=== PATIENT | male | born 1940 | race Caucasian/White ===

== ENCOUNTER → 2018-02-01 | Outpatient (REF) | payer MEDICARE ==
[2018-02-02 14:01] LABS: TOTAL PROTEIN,RANDOM URINE 242.6 MG/DL (0.0-12.0); URINE TOTAL PROTEIN 242.6 MG/DL (0-12)
[2018-02-02 14:06] LABS: COMPLEMENT C4 25 MG/DL (10-40); TOTAL PROTEIN 7.9 GM/DL (6.4-8.2)
[2018-02-02 14:06] LABS: COMPLEMENT C3 142 MG/DL (90-180)
[2018-02-04 00:11] LABS: FREE KAPPA LIGHT CHAINS SERUM 75.8 mg/L (3.3-19.4); FREE LAMBDA LIGHT CHAINS SERUM 44.4 mg/L (5.7-26.3); KAPPA/LAMBDA RATIO SERUM 1.71 (0.26-1.65)
[2018-02-07 14:06] LABS: ALBUMIN 3.98 GM/DL (3.29-5.55); ALBUMIN % 50.4 % (55.8-66.1); ALPHA-1-GLOBULIN % 4.5 % (2.9-4.9); ALPHA-1-GLOBULINS 0.36 GM/DL (0.17-0.41); ALPHA-2-GLOBULINS 0.95 GM/DL (0.42-0.99); BETA-1-GLOBULINS 0.51 GM/DL (0.28-0.60); BETA-1-GLOBULINS % 6.5 % (4.7-7.2); BETA-2-GLOBULINS 0.58 GM/DL (0.19-0.55); BETA-2-GLOBULINS % 7.3 % (3.2-6.5)
[2018-02-07 14:07] LABS: GAMMA GLOBULIN % 19.3 % (11.1-18.8); GAMMA GLOBULINS 1.52 GM/DL (0.65-1.58)
[2018-02-09 14:13] LABS: UPEP INTERPRETATION NO M-SPIKE NOTED; URINE VOLUME RANDOM ML
== END ==
LOC: M LAB REF 13:17
DX: I12.9 Hypertensive chronic kidney disease with stage 1 through stage 4 chronic kidney disease, or unspecified chronic kidney disease (principal); R80.9 Proteinuria, unspecified; N18.9 Chronic kidney disease, unspecified
CPT/HCPCS: 84165

== ENCOUNTER → 2020-03-11 | Outpatient (CLI) | payer SELFPAY | LOC: M LABSMTC 10:17 | PROVIDERS: ATTEND Pediatrics | DX: Z20.828 Contact with and (suspected) exposure to other viral communicable diseases (principal) ==

== ENCOUNTER 2020-05-22 08:00 | Emergency (ER) | payer MEDICARE ==
[~2020-05-22] VITALS: Ht 167.6 cm; Wt 108.7 kg
[2020-05-22] MEDS ORDERED: HYDR10TAB (08:19)
[2020-05-22] MEDS ORDERED: SIMV20TA22 (08:19)
[2020-05-22] MEDS ORDERED: LISI-898 (08:19)
[2020-05-22] MEDS ORDERED: ASPI81CH33 PO (08:19)
[2020-05-22] MEDS ORDERED: POTA20TA6 (08:19)
[2020-05-22] MEDS ORDERED: ATEN50TA2 (08:19)
[2020-05-22] MEDS ORDERED: FURO20TA2 (08:19)
[2020-05-22] MEDS ORDERED: AMIO200T37 (08:19)
[2020-05-22] MEDS ORDERED: XARE15TA (08:19)
--- NOTE | 2020-05-22 08:53 | REP ---
INDICATION: DYSPNEA/COUGH. COMPARISON: None. TECHNIQUE: SINGLE PORTABLE AP VIEW OF THE CHEST WAS PERFORMED. FINDINGS: There is moderate cardiomegaly. There is infiltrate in the right lung predominantly in the mid and lower lung zones with blunting of the costophrenic angle representing a small amount of pleural fluid or thickening. No infiltrate is seen in the left lung. The mediastinal silhouette is otherwise unremarkable. There is left 2 lead pacemaker. IMPRESSION: Right lung infiltrate with a small amount of right pleural fluid or thickening. Moderate cardiomegaly. <Electronically signed by Jamison Yin > 05/22/20 0810
[2020-05-22] MEDS ORDERED: AMLO1TAB25 (09:22)
[2020-05-22 09:29] LABS: RSV AMPLIFICATION NEGATIVE (NEGATIVE)
[2020-05-22 09:38] LABS: BASO % 0.2 % (0.0-1.0); HEMATOCRIT 26.8 % (42.0-52.0); HEMOGLOBIN 7.8 g/dl (13.5-17.5); LYMPH # 0.6 10^3/uL (1.5-5.0); MEAN CORPUSCULAR HEMOGLOBIN 25.1 pg (27.0-33.0); MEAN CORPUSCULAR HGB CONC 29.1 g/dl (32.0-36.5); MEAN CORPUSCULAR VOLUME 86.2 fl (80.0-96.0); MONO # 0.8 10^3/uL (0.0-0.8); MONO % 6.5 % (2.0-8.0); NEUTROPHILS % 87.6 % (36.0-66.0); PLATELET COUNT, AUTOMATED 355 10^3/uL (150-450); RED BLOOD COUNT 3.11 10^6/uL (4.30-6.10); WHITE BLOOD COUNT 12.6 10^3/uL (4.0-10.0)
[2020-05-22 09:48] LABS: INR 3.2; PROTHROMBIN TIME 33.5 SECONDS (12.5-14.3)
[2020-05-22] MEDS ORDERED: cefTRIAXone SOD 2 GM in D5W MINI-BAG PLUS 50 ML IV ONE (10:10)
[2020-05-22 10:21] LABS: ALBUMIN 3.4 GM/DL (3.2-5.2); BILIRUBIN,DIRECT 0.4 MG/DL (0.0-0.2); BILIRUBIN,TOTAL 1.1 MG/DL (0.2-1.0); CALCIUM LEVEL 8.9 MG/DL (8.8-10.2); CK-MB VALUE MASS 5.2 NG/ML (<3.6); CREATININE FOR GFR 2.99 MG/DL (0.70-1.30); GLOMERULAR FILTRATION RATE 21.7 (>42); MB/CK RELATIVE INDEX 4.77 (< OR =4); POTASSIUM SERUM 5.3 MEQ/L (3.5-5.1); THYROID STIMULATING HORMONE 1.59 uIU/ML (0.358-3.740); TROPONIN I 2.84 NG/ML (< 0.10)
[2020-05-22] MEDS ORDERED: ASPIRIN 325 MG TAB PO ONE (10:40)
--- NOTE | 2020-05-22 11:19 | REP ---
INDICATION: infiltrate. COMPARISON: Chest radiograph 05/22/2020. TECHNIQUE: CT chest performed without the use of intravenous contrast. Sagittal and coronal reconstruction images are performed. FINDINGS: Lungs: Scattered diffuse bilateral infiltrates are present. Mediastinum: No gross adenopathy. Ambika: No gross adenopathy. Axilla: No gross adenopathy. Pleura: There is a small left pleural effusion. There is a moderate right pleural effusion. Heart: There is moderate cardiomegaly. Thoracic aorta: No aneurysm. Upper abdominal structures: Grossly unremarkable. Visualized osseous structures: There are degenerative changes of the spine compression deformity.. A left 2 lead pacemaker is noted. IMPRESSION: Scattered diffuse bilateral infiltrates. Small left effusion. Moderate right effusion. Moderate cardiomegaly. <Electronically signed by Jamison Yin > 05/22/20 [id number]
[2020-05-22 12:43] VITALS: BP 136/60
[2020-05-22 12:58] VITALS: BP 133/61
[2020-05-22 13:32] LABS: CK-MB VALUE MASS 7.1 NG/ML (<3.6); MB/CK RELATIVE INDEX 5.59 (< OR =4); TROPONIN I 3.07 NG/ML (< 0.10)
[2020-05-22 15:56] VITALS: BP 138/68
--- NOTE | 2020-05-23 01:45 | ECGEPIP ---
[facility] - ED Test Date: 2020-05-22 Pat Name: ELE IZAGUIRRE Department: Room: - Gender: Male [employer] Equipment Controller: Dedra WALDRON : 1940 Requested By: VARUN Mendez Order Number: [id number] Reading MD: Ramses Olson Measurements Intervals [place] Rate: 81 P: [place]: QRS: 67 QRSD: 182 T: 207 QT: 466 QTc: 541 Interpretive Statements AV sequential or dual chamber electronic pacemaker NO PRIORS FOR COMPARISON Electronically Signed on 05-23-2020 1:44:48 EDT by Ramses Olson
== END 2020-05-22 16:05 | disposition short-term general hospital (02) ==
LOC: M ED 08:00
DX: I21.4 Non-ST elevation (NSTEMI) myocardial infarction (principal); J18.9 Pneumonia, unspecified organism; D64.9 Anemia, unspecified; I11.9 Hypertensive heart disease without heart failure; F17.200 Nicotine dependence, unspecified, uncomplicated; Z95.0 Presence of cardiac pacemaker; Z79.82 Long term (current) use of aspirin; Z79.899 Other long term (current) drug therapy
CPT/HCPCS: 36415; 71045; 71250; 80048; 80076; 82550; 82553; 83880; 84436; 84443; 84484; 85025; 85610; 86850; 86900; 86901; 86920; 87040; 87631; 93005; 93041; 94760; 96365; 99285; J0696; P9016

== ENCOUNTER → 2020-11-11 | Outpatient (REF) | payer MEDICARE ==
[~2020-11-11] MED LIST: AMIO200T37; AMLO1TAB25; ASPI81CH33 PO; ATEN50TA2; FURO20TA2; HYDR10TAB; LISI5TAB11; POTA-151; SIMV20TA22; XARE15TA
== END ==
LOC: M LAB REF 16:51
PROVIDERS: ATTEND Internal Medicine Nephrology
DX: N18.4 Chronic kidney disease, stage 4 (severe) (principal)

== ENCOUNTER → 2022-04-26 | Outpatient (REF) | payer MEDICARE ==
[2022-04-26 18:06] LABS: PERCENT SATURATION 9.1 % (19.7-50.0)
[2022-04-26 18:09] LABS: FERRITIN 62.2 NG/ML (10.5-307.3)
== END ==
LOC: M LAB REF 17:43
PROVIDERS: ATTEND Internal Medicine Nephrology
DX: D50.9 Iron deficiency anemia, unspecified (principal)

== ENCOUNTER 2022-04-30 10:23 | Outpatient (CLI) | payer MEDICARE ==
[~2022-04-30] VITALS: Ht 167.6 cm; Wt 86.4 kg
[~2022-04-30 10:23] MED LIST changes: +ALBUTEROL SULFATE 2.5MG/0.5ML INH NEB SOLN INH PRN; +EPINEPHrine INJ 1 MG/ML 1ML AMP IM PRN; +diphenhydrAMINE 50MG/ML VIAL IV PRN; +methylPREDNISolone 125MG 2ML VIAL IV PRN
[2022-04-30 10:45] VITALS: BP 103/61
[2022-04-30] MEDS ORDERED: IRON65TA2 PO (11:00)
[2022-04-30] MEDS ORDERED: NS 1,000 ML IV SCH (11:30)
[2022-04-30] MEDS ORDERED: FERRIC CARBOXYMALTOSE INJ 750 MG in NS 250 ML (>50kg) IV ONE ×3 (11:30)
[2022-04-30 12:35] VITALS: BP 128/62
== END 2022-04-30 12:40 | disposition home or self-care (01) ==
LOC: M INFU 10:23
PROVIDERS: ATTEND Internal Medicine Nephrology
DX: E61.1 Iron deficiency (principal)
CPT/HCPCS: 96365; J1439

== ENCOUNTER 2022-05-07 11:00 | Outpatient (CLI) | payer MEDICARE ==
[~2022-05-07] VITALS: Ht 167.6 cm; Wt 86.4 kg
[2022-05-07 11:00] VITALS: BP 106/56
[~2022-05-07 11:00] MED LIST changes: +IRON65TA2 PO
[2022-05-07] MEDS ORDERED: FERRIC CARBOXYMALTOSE INJ 750 MG in NS 250 ML (>50kg) IV ONE ×3 (11:30)
[2022-05-07] MEDS ORDERED: NS 1,000 ML IV SCH (11:30)
[2022-05-07 12:30] VITALS: BP 107/59
== END 2022-05-07 12:30 | disposition home or self-care (01) ==
LOC: M INFU 11:00
PROVIDERS: ATTEND Internal Medicine Nephrology
DX: E61.1 Iron deficiency (principal)
CPT/HCPCS: 96365; J1439

== ENCOUNTER 2022-06-22 08:04 | Observation (INO) | payer MEDICARE ==
[~2022-06-22] VITALS: Ht 167.6 cm; Wt 83.8 kg
[~2022-06-22 08:04] MED LIST changes: -ALBUTEROL SULFATE 2.5MG/0.5ML INH NEB SOLN INH PRN; -AMLO1TAB25; +AMLO1TAB25 PO; -ATEN50TA2; +ATEN50TA2 PO; -EPINEPHrine INJ 1 MG/ML 1ML AMP IM PRN; -HYDR10TAB; +HYDR10TAB PO; -POTA-151; +POTA-151 PO; -SIMV20TA22; +SIMV20TA22 PO; -diphenhydrAMINE 50MG/ML VIAL IV PRN; -methylPREDNISolone 125MG 2ML VIAL IV PRN
[2022-06-22] MEDS ORDERED: ROCA0.25 PO (08:17)
[2022-06-22] MEDS ORDERED: PANT40TA29 PO (08:17)
[2022-06-22] MEDS ORDERED: ECOT81TA5 PO (08:17)
[2022-06-22] MEDS ORDERED: VALS1TAB66 PO (08:17)
[2022-06-22] MEDS ORDERED: NS 1,000 ML IV ONE (08:25)
[2022-06-22 08:54] LABS: VENOUS PARTIAL PRESSURE CO2 43.1 mmHg (38.0-50.0); VENOUS PARTIAL PRESSURE O2 37.6 mmHg (30.0-50.0); VENOUS PH 7.238 UNITS (7.330-7.430); VENOUS STANDARD HCO3 16.5 MEQ/L; VENOUS TOTAL CO2 19.3 MEQ/L (24.0-28.0)
[2022-06-22 08:59] LABS: BASO # 0.1 10^3/uL (0.0-0.2); BASO % 0.5 % (0.0-1.0); EOS # 0.1 10^3/uL (0.0-0.5); EOS % 0.7 % (0.0-3.0); HEMATOCRIT 32.1 % (42.0-52.0); HEMOGLOBIN 9.8 g/dl (13.5-17.5); LYMPH # 1.1 10^3/uL (1.5-5.0); LYMPH % 7.2 % (24.0-44.0); MEAN CORPUSCULAR HEMOGLOBIN 29.1 pg (27.0-33.0); MEAN CORPUSCULAR HGB CONC 30.5 g/dl (32.0-36.5); MEAN CORPUSCULAR VOLUME 95.3 fl (80.0-96.0); MONO # 1.4 10^3/uL (0.0-0.8); MONO % 8.8 % (2.0-8.0); NEUTROPHILS % 82.2 % (36.0-66.0); PLATELET COUNT, AUTOMATED 418 10^3/uL (150-450); RED BLOOD COUNT 3.37 10^6/uL (4.30-6.10); WHITE BLOOD COUNT 15.8 10^3/uL (4.0-10.0)
[2022-06-22 09:21] LABS: OSMOLALITY SERUM 298 MOSM/KG (280-301)
[2022-06-22 09:23] LABS: ALBUMIN 2.4 G/DL (3.2-5.2); ALKALINE PHOSPHATASE 86 U/L (46-116); ALT/SGPT < 9 U/L (7.0-40); AST/SGOT 12 U/L (<34); BILIRUBIN,DIRECT 0.3 MG/DL (<0.4); BILIRUBIN,TOTAL 0.4 MG/DL (0.3-1.2); BLOOD UREA NITROGEN 35 MG/DL (9-23); CALCIUM LEVEL 9.2 MG/DL (8.3-10.6); CARBON DIOXIDE LEVEL 22 MMOL/L (20-31); CHLORIDE LEVEL 103 MMOL/L (98-107); GLOMERULAR FILTRATION RATE 32.4 (>35); GLUCOSE, FASTING 147 MG/DL (74-106); POTASSIUM SERUM 4.1 MMOL/L (3.5-5.1); SODIUM LEVEL 137 MMOL/L (136-145); TOTAL PROTEIN 6.5 G/DL (5.7-8.2)
[2022-06-22] MEDS ORDERED: cefTRIAXone SOD 2 GM in D5W MINI-BAG PLUS 50 ML IV ONE (09:25)
[2022-06-22] MEDS ORDERED: NS 2,590 ML in IV 1 EA IV ONE (09:25)
[2022-06-22 09:44] LABS: RSV AMPLIFICATION NEGATIVE (NEGATIVE)
[2022-06-22] MEDS ORDERED: ACETAMINOPHEN TAB 650MG DOSE (2X325MG) PO PRN (11:00)
[2022-06-22] MEDS ORDERED: ACET-683 PO (11:27)
[2022-06-22] MEDS ORDERED: VITA100093 PO (11:27)
[2022-06-22] MEDS ORDERED: FURO40TA2 PO (11:27)
[2022-06-22] MEDS ORDERED: HOME MED LIST COMPLETE! XX SCH (11:30)
[2022-06-22] MEDS ORDERED: HEPARIN SOD (PORCINE) 5000UNITS/ML 1ML VIAL/SYRINGE SC SCH (14:00)
[2022-06-22] MEDS ORDERED: GOLYTELY SOLN 4000 ML BTL PO ONE (15:00)
[2022-06-22 15:35] VITALS: BP 138/60
[2022-06-22 16:00] VITALS: BP_SYST 107; BP_SYST 116; BP_SYST 138; BP_DIAS 58; BP_DIAS 60; BP_DIAS 65
[2022-06-22 19:36] VITALS: BP 116/55
[2022-06-22] MEDS: FERROUS SULFATE 325MG TAB PO SCH (20:58)
[2022-06-22] MEDS: PANTOPRAZOLE 40MG TAB (PROTONIX) PO SCH (20:58)
[2022-06-22 21:00] VITALS: BP_SYST 116; BP_SYST 84; BP_SYST 85; BP_DIAS 50; BP_DIAS 52; BP_DIAS 59
[2022-06-22] MEDS ORDERED: SIMVASTATIN 20 MG TAB PO SCH (21:00)
[2022-06-23 00:28] VITALS: BP 100/68
[2022-06-23 03:53] VITALS: BP 108/60
[2022-06-23 06:19] LABS: HEMATOCRIT 26.1 % (42.0-52.0); HEMOGLOBIN 8.2 g/dl (13.5-17.5); MEAN CORPUSCULAR HEMOGLOBIN 29.4 pg (27.0-33.0); MEAN CORPUSCULAR HGB CONC 31.4 g/dl (32.0-36.5); MEAN CORPUSCULAR VOLUME 93.5 fl (80.0-96.0); RED BLOOD COUNT 2.79 10^6/uL (4.30-6.10); WHITE BLOOD COUNT 10.4 10^3/uL (4.0-10.0)
[2022-06-23 06:23] LABS: PLATELET COUNT, AUTOMATED 267 10^3/uL (150-450)
[2022-06-23 06:29] LABS: ALKALINE PHOSPHATASE 66 U/L (46-116); ALT/SGPT < 9 U/L (7.0-40); AST/SGOT < 8 U/L (<34); BILIRUBIN,TOTAL 0.2 MG/DL (0.3-1.2); BLOOD UREA NITROGEN 26 MG/DL (9-23); CALCIUM LEVEL 8.8 MG/DL (8.3-10.6); CARBON DIOXIDE LEVEL 22 MMOL/L (20-31); CHLORIDE LEVEL 112 MMOL/L (98-107); CREATININE FOR GFR 1.66 MG/DL (0.70-1.30); GLOMERULAR FILTRATION RATE 42.5 (>35); GLUCOSE, FASTING 84 MG/DL (74-106); MAGNESIUM LEVEL 1.6 MG/DL (1.8-2.4); POTASSIUM SERUM 3.2 MMOL/L (3.5-5.1); SODIUM LEVEL 144 MMOL/L (136-145); TOTAL PROTEIN 5.5 G/DL (5.7-8.2)
[2022-06-23] MEDS ORDERED: NS 1,000 ML IV SCH (07:15)
[2022-06-23] MEDS ORDERED: KCL 10MEQ/100ML SWI (KRUN) 10 MEQ in IV 1 EA IV ONE (07:15)
[2022-06-23] MEDS ORDERED: MAG SULF 1GM/100ML (MAG RUN) 1 GM in IV 1 EA IV ONE (07:15)
[2022-06-23 08:17] VITALS: BP 114/58
[2022-06-23] MEDS ORDERED: PANTOPRAZOLE 40MG TAB (PROTONIX) PO SCH (09:00)
[2022-06-23] MEDS ORDERED: ASPIRIN 81MG ENTERIC TABLET PO SCH (09:00)
[2022-06-23 09:11] VITALS: BP_SYST 113; BP_SYST 96; BP_SYST 99; BP_DIAS 52; BP_DIAS 56; BP_DIAS 58
[2022-06-23] MEDS: FERROUS SULFATE 325MG TAB PO SCH (09:19)
[2022-06-23] MEDS: PANTOPRAZOLE 40MG TAB (PROTONIX) PO SCH (09:19)
[2022-06-23 11:54] VITALS: BP 106/56
[2022-06-23 13:27] LABS: HEMATOCRIT 29.4 % (42.0-52.0); HEMOGLOBIN 9.2 g/dl (13.5-17.5)
[2022-06-23] MEDS ORDERED: propofoL 200 MG/20 ML VIAL As Ordered ONE (14:55)
[2022-06-23 16:00] VITALS: BP 113/58
== END 2022-06-23 18:30 | disposition home or self-care (01) ==
LOC: M ED 08:04 → M ED INP 08:05 → ENRESERV 14:36 → M PCU 15:28
PROVIDERS: ADMIT Family Medicine; ATTEND Family Medicine
DX: K63.89 Other specified diseases of intestine (principal); K56.690 Other partial intestinal obstruction; K57.30 Diverticulosis of large intestine without perforation or abscess without bleeding; I95.1 Orthostatic hypotension; R53.1 Weakness; E87.20 Acidosis, unspecified; I48.91 Unspecified atrial fibrillation; D72.829 Elevated white blood cell count, unspecified; I12.9 Hypertensive chronic kidney disease with stage 1 through stage 4 chronic kidney disease, or unspecified chronic kidney disease; N18.9 Chronic kidney disease, unspecified; D64.9 Anemia, unspecified; I25.2 Old myocardial infarction; R63.4 Abnormal weight loss; R63.0 Anorexia; Z79.899 Other long term (current) drug therapy; Z79.82 Long term (current) use of aspirin; Z95.0 Presence of cardiac pacemaker; Z87.891 Personal history of nicotine dependence
CPT/HCPCS: 36415; 45380; 71045; 71250; 74176; 80048; 80053; 80076; 81001; 82140; 82378; 82803; 83605; 83735; 83930; 84145; 84443; 85014; 85018; 85025; 85027; 87040; 87631; 88305; 93005; 93041; 94760; 96361; 96365; 96375; 97116; 97161; 99285; G0378; J0696; J3475

== ENCOUNTER 2022-07-05 14:19 | Inpatient (IN) | payer MEDICARE ==
[~2022-07-05] VITALS: Ht 167.6 cm; Wt 80.0 kg
[~2022-07-05 14:19] MED LIST changes: +ACET-683 PO; +ECOT81TA5 PO; +FURO40TA2 PO; +PANT40TA29 PO; +ROCA0.25 PO; +VALS1TAB66 PO; +VITA100093 PO
[2022-07-05] MEDS ORDERED: METOPROLOL 5 MG/5 ML VIAL IV PRN (15:40)
[2022-07-05] MEDS ORDERED: DIGOXIN INJ 0.5 MG/2 ML AMP IV ONE (16:10)
[2022-07-05 16:20] LABS: ABG BASE EXCESS -7.5 (-2.0-2.0); ABG HCO3 14.6 MMOL/L (22.0-26.0); ABG O2 SATURATION 99.1 % (95.0-99.0); ABG PARTIAL PRESSURE O2 132.3 mmHg (75.0-100.0); ABG STANDARD HCO3 18.3 MMOL/L. (22.0-26.0); ABG TOTAL CO2 15.2 MMOL/L (23.0-31.0); ABG pH (ARTERIAL) 7.485 UNITS (7.350-7.450)
[2022-07-05 16:24] LABS: ABG PARTIAL PRESSURE CO2 19.8 mmHg (35.0-45.0)
[2022-07-05] MEDS ORDERED: NS 500 ML IV ONE (16:30)
[2022-07-05 17:12] LABS: BASO % 0.2 % (0.0-1.0); HEMATOCRIT 27.1 % (42.0-52.0); HEMOGLOBIN 8.2 g/dl (13.5-17.5); LYMPH # 0.6 10^3/uL (1.5-5.0); LYMPH % 2.6 % (24.0-44.0); MEAN CORPUSCULAR HEMOGLOBIN 29.6 pg (27.0-33.0); MEAN CORPUSCULAR HGB CONC 30.3 g/dl (32.0-36.5); MEAN CORPUSCULAR VOLUME 97.8 fl (80.0-96.0); MONO # 0.9 10^3/uL (0.0-0.8); MONO % 4.4 % (2.0-8.0); NEUTROPHILS # 19.6 10^3/uL (1.5-8.5); PLATELET COUNT, AUTOMATED 421 10^3/uL (150-450); RED BLOOD COUNT 2.77 10^6/uL (4.30-6.10); WHITE BLOOD COUNT 21.3 10^3/uL (4.0-10.0)
[2022-07-05] MEDS ORDERED: PIPERACILLIN/TAZOBACTAM SOD 4.5 GM in D5W MINI-BAG PLUS 50 ML IV ONE (17:20)
[2022-07-05 17:30] LABS: CK-MB VALUE MASS < 1.0 NG/ML (<3.6)
[2022-07-05 17:31] LABS: LIPASE 21 U/L (12-53)
[2022-07-05 17:32] LABS: ALBUMIN 2.2 G/DL (3.2-5.2); ALKALINE PHOSPHATASE 95 U/L (46-116); ALT/SGPT < 9 U/L (7.0-40); AST/SGOT < 8 U/L (<34); BILIRUBIN,DIRECT 0.2 MG/DL (<0.4); BILIRUBIN,TOTAL 0.5 MG/DL (0.3-1.2); BLOOD UREA NITROGEN 16 MG/DL (9-23); CALCIUM LEVEL 8.6 MG/DL (8.3-10.6); CARBON DIOXIDE LEVEL 19 MMOL/L (20-31); CHLORIDE LEVEL 104 MMOL/L (98-107); CPK CREATINE PHOSPHOKINASE 22 U/L (46-171); CREATININE FOR GFR 1.83 MG/DL (0.70-1.30); DIGOXIN LEVEL 1.8 NG/ML (0.8-2.0); GLUCOSE, FASTING 159 MG/DL (74-106); INR 1.14; MB/CK RELATIVE INDEX 4.54 (< OR =4); POTASSIUM SERUM 5.5 MMOL/L (3.5-5.1); PROTHROMBIN TIME 14.8 SECONDS (12.5-14.5); SODIUM LEVEL 134 MMOL/L (136-145); TOTAL PROTEIN 6.1 G/DL (5.7-8.2)
[2022-07-05 17:33] LABS: PARTIAL THROMBOPLASTIN TIME 31.5 SECONDS (24.8-34.2)
[2022-07-05 17:34] LABS: FREE T4 1.22 NG/DL (0.89-1.76)
[2022-07-05 17:35] LABS: THYROID STIMULATING HORMONE 2.019 uIU/ML (0.55-4.78)
[2022-07-05 17:58] LABS: RSV AMPLIFICATION NEGATIVE (NEGATIVE)
[2022-07-05 18:24] LABS: CK-MB VALUE MASS < 1.0 NG/ML (<3.6)
[2022-07-05 18:25] LABS: CPK CREATINE PHOSPHOKINASE 16 U/L (46-171); MB/CK RELATIVE INDEX 6.25 (< OR =4)
[2022-07-05] MEDS ORDERED: NS 1,000 ML IV ONE (19:20)
[2022-07-05] MEDS ORDERED: ASPI-161 PO (22:36)
[2022-07-05] MEDS ORDERED: DIGO0.123 PO (22:36)
[2022-07-05] MEDS ORDERED: HOME MED LIST COMPLETE! XX SCH (22:40)
[2022-07-06] VITALS (14 sets, daily range): BP systolic 120–148; BP diastolic 58–83
[2022-07-06] MEDS ORDERED: GLUCAGON INJ 1MG VIAL SC PRN (02:50)
[2022-07-06] MEDS ORDERED: GLUCOSE 4GM CHEW TABLET PO PRN (02:50)
[2022-07-06] MEDS ORDERED: DEXTROSE 50% 50ML SYRINGE IV PRN (02:50)
[2022-07-06 03:41] LABS: BASO % 0.3 % (0.0-1.0); EOS # 0.1 10^3/uL (0.0-0.5); EOS % 0.7 % (0.0-3.0); LYMPH % 8.7 % (24.0-44.0); MEAN CORPUSCULAR HEMOGLOBIN 29.7 pg (27.0-33.0); MEAN CORPUSCULAR HGB CONC 31.3 g/dl (32.0-36.5); MONO # 0.8 10^3/uL (0.0-0.8); MONO % 6.8 % (2.0-8.0); NEUTROPHILS # 9.6 10^3/uL (1.5-8.5); NEUTROPHILS % 83.1 % (36.0-66.0); PLATELET COUNT, AUTOMATED 322 10^3/uL (150-450); RED BLOOD COUNT 2.19 10^6/uL (4.30-6.10); WHITE BLOOD COUNT 11.6 10^3/uL (4.0-10.0)
[2022-07-06 03:44] LABS: HEMATOCRIT 20.8 % (42.0-52.0); HEMOGLOBIN 6.5 g/dl (13.5-17.5)
[2022-07-06 04:15] LABS: CALCIUM LEVEL 7.7 MG/DL (8.3-10.6); CREATININE FOR GFR 1.69 MG/DL (0.70-1.30); GLOMERULAR FILTRATION RATE 41.7 (>35); POTASSIUM SERUM 5.1 MMOL/L (3.5-5.1)
[2022-07-06] MEDS ORDERED: PIPERACILLIN/TAZOBACTAM SOD 2.25 GM in D5W MINI-BAG PLUS 50 ML IV SCH ×2 (05:00→12:00)
[2022-07-06] MEDS ORDERED: amLODIPine 5 MG TAB PO ONE (06:20)
[2022-07-06 06:45] LABS: VENOUS BASE EXCESS -4.8 (-2.0-2.0); VENOUS HCO3 19.3 MMOL/L (23.0-27.0); VENOUS O2 SATURATION 98.8 % (60.0-80.0); VENOUS PARTIAL PRESSURE CO2 31.3 mmHg (38.0-50.0); VENOUS PARTIAL PRESSURE O2 140.8 mmHg (30.0-50.0); VENOUS PH 7.408 UNITS (7.330-7.430); VENOUS STANDARD HCO3 20.5 MMOL/L; VENOUS TOTAL CO2 20.3 MMOL/L (24.0-28.0)
[2022-07-06] MEDS ORDERED: INSULIN LISPRO (NovoLOG) PER UNIT SC SCH (07:30)
[2022-07-06] MEDS ORDERED: PANTOPRAZOLE 40MG TAB (PROTONIX) PO SCH (09:00)
[2022-07-06] MEDS: FERROUS SULFATE 325MG TAB PO SCH ×2 (09:20→20:22)
[2022-07-06] MEDS: DIGOXIN 0.125 MG TAB PO SCH (09:20)
[2022-07-06] MEDS: METOPROLOL TART 50 MG TAB PO SCH ×2 (10:32→20:23)
[2022-07-06] MEDS: PIPERACILLIN/TAZOBACTAM SOD 2.25 GM in D5W MINI-BAG PLUS 50 ML IV SCH ×2 (14:23→20:22)
[2022-07-06 17:43] LABS: HEMATOCRIT 30.1 % (42.0-52.0); HEMOGLOBIN 9.5 g/dl (13.5-17.5)
[2022-07-06] MEDS: PANTOPRAZOLE 40MG VIAL IV SCH (20:22)
[2022-07-06] MEDS: SIMVASTATIN 20 MG TAB PO SCH (20:22)
[2022-07-07] MEDS: PIPERACILLIN/TAZOBACTAM SOD 2.25 GM in D5W MINI-BAG PLUS 50 ML IV SCH ×4 (02:00→20:18)
[2022-07-07 04:03] VITALS: BP 140/65
[2022-07-07 05:09] LABS: BASO % 0.3 % (0.0-1.0); EOS # 0.1 10^3/uL (0.0-0.5); EOS % 1.2 % (0.0-3.0); HEMOGLOBIN 9.2 g/dl (13.5-17.5); LYMPH # 0.7 10^3/uL (1.5-5.0); LYMPH % 7.2 % (24.0-44.0); MEAN CORPUSCULAR HEMOGLOBIN 29.1 pg (27.0-33.0); MEAN CORPUSCULAR HGB CONC 31.7 g/dl (32.0-36.5); MEAN CORPUSCULAR VOLUME 91.8 fl (80.0-96.0); MONO # 0.7 10^3/uL (0.0-0.8); MONO % 7.6 % (2.0-8.0); NEUTROPHILS # 7.7 10^3/uL (1.5-8.5); NEUTROPHILS % 83.4 % (36.0-66.0); PLATELET COUNT, AUTOMATED 277 10^3/uL (150-450); RED BLOOD COUNT 3.16 10^6/uL (4.30-6.10); WHITE BLOOD COUNT 9.3 10^3/uL (4.0-10.0)
[2022-07-07 05:37] LABS: CALCIUM LEVEL 7.9 MG/DL (8.3-10.6); CREATININE FOR GFR 1.48 MG/DL (0.70-1.30); GLOMERULAR FILTRATION RATE 48.6 (>35); POTASSIUM SERUM 4.4 MMOL/L (3.5-5.1)
[2022-07-07 07:00] VITALS: BP 148/70
[2022-07-07 08:00] VITALS: BP 145/69
[2022-07-07] MEDS: DIGOXIN 0.125 MG TAB PO SCH (08:56)
[2022-07-07] MEDS: METOPROLOL TART 50 MG TAB PO SCH ×2 (08:57→20:19)
[2022-07-07] MEDS: FERROUS SULFATE 325MG TAB PO SCH ×2 (08:57→20:18)
[2022-07-07] MEDS: PANTOPRAZOLE 40MG VIAL IV SCH ×2 (08:57→20:19)
[2022-07-07 12:00] VITALS: BP 124/58
[2022-07-07 16:00] VITALS: BP 136/65
[2022-07-07 20:00] VITALS: BP 125/60
[2022-07-07] MEDS: SIMVASTATIN 20 MG TAB PO SCH (20:18)
[2022-07-08] MEDS: PIPERACILLIN/TAZOBACTAM SOD 2.25 GM in D5W MINI-BAG PLUS 50 ML IV SCH ×2 (02:01→09:09)
[2022-07-08 04:59] LABS: BASO # 0.1 10^3/uL (0.0-0.2); BASO % 0.8 % (0.0-1.0); EOS # 0.2 10^3/uL (0.0-0.5); HEMATOCRIT 29.5 % (42.0-52.0); HEMOGLOBIN 9.5 g/dl (13.5-17.5); LYMPH # 0.6 10^3/uL (1.5-5.0); LYMPH % 8.2 % (24.0-44.0); MEAN CORPUSCULAR HEMOGLOBIN 29.9 pg (27.0-33.0); MEAN CORPUSCULAR HGB CONC 32.2 g/dl (32.0-36.5); MEAN CORPUSCULAR VOLUME 92.8 fl (80.0-96.0); MONO # 0.6 10^3/uL (0.0-0.8); MONO % 7.9 % (2.0-8.0); NEUTROPHILS # 6.3 10^3/uL (1.5-8.5); NEUTROPHILS % 80.6 % (36.0-66.0); PLATELET COUNT, AUTOMATED 280 10^3/uL (150-450); RED BLOOD COUNT 3.18 10^6/uL (4.30-6.10); WHITE BLOOD COUNT 7.8 10^3/uL (4.0-10.0)
[2022-07-08 05:14] VITALS: BP 119/57
[2022-07-08 05:24] LABS: CREATININE FOR GFR 1.46 MG/DL (0.70-1.30); GLOMERULAR FILTRATION RATE 49.3 (>35); POTASSIUM SERUM 3.9 MMOL/L (3.5-5.1)
[2022-07-08 08:00] VITALS: BP 169/75
[2022-07-08] MEDS: FERROUS SULFATE 325MG TAB PO SCH (09:09)
[2022-07-08 09:10] VITALS: BP 169/75
[2022-07-08] MEDS: PANTOPRAZOLE 40MG VIAL IV SCH (09:10)
[2022-07-08] MEDS: DIGOXIN 0.125 MG TAB PO SCH (09:10)
[2022-07-08] MEDS: METOPROLOL TART 50 MG TAB PO SCH (09:10)
[2022-07-08 10:00] VITALS: BP 127/62
[2022-07-08] MEDS ORDERED: CIPR-249 PO (10:48)
[2022-07-08] MEDS ORDERED: LOPR1TAB6 PO (10:48)
[2022-07-08] MEDS ORDERED: METR-265 PO (10:48)
[2022-07-08 12:00] VITALS: BP 144/67
== END 2022-07-08 12:29 | disposition home or self-care (01) | DRG 812 ==
LOC: M ED 14:19 → M ED INP 23:56 → M ICU 07-06 08:29
PROVIDERS: ADMIT Internal Medicine; ATTEND Internal Medicine
PROC: 30233N1 Transfusion of Nonautologous Red Blood Cells into Peripheral Vein, Percutaneous Approach (ICD-10-PCS; principal; 2022-07-06)
DX: D50.0 Iron deficiency anemia secondary to blood loss (chronic) (principal); E87.1 Hypo-osmolality and hyponatremia; E87.20 Acidosis, unspecified; N17.9 Acute kidney failure, unspecified; C18.0 Malignant neoplasm of cecum; N18.9 Chronic kidney disease, unspecified; I48.91 Unspecified atrial fibrillation; I35.8 Other nonrheumatic aortic valve disorders; E78.5 Hyperlipidemia, unspecified; I12.9 Hypertensive chronic kidney disease with stage 1 through stage 4 chronic kidney disease, or unspecified chronic kidney disease; I25.10 Atherosclerotic heart disease of native coronary artery without angina pectoris; K63.89 Other specified diseases of intestine; Z95.0 Presence of cardiac pacemaker; Z79.82 Long term (current) use of aspirin; Z79.899 Other long term (current) drug therapy; Z20.822 Contact with and (suspected) exposure to COVID-19

== ENCOUNTER 2022-07-22 08:17 | Inpatient (IN) | payer MEDICARE ==
[2022-07-22] VITALS (7 sets, daily range): BP systolic 117–147; BP diastolic 59–66; TEMP 97.5–97.7; O2SAT 93–96
[~2022-07-22] VITALS: Ht 162.6 cm; Wt 81.6 kg
[~2022-07-22 08:17] MED LIST changes: +ASPI-161 PO; +CIPR-249 PO; +DIGO0.123 PO; +LIDOCAINE 2% 100MG/5ML SDV (FOR ANES.) As Ordered ONE; +LOPR1TAB6 PO; +METR-265 PO; +ONDANSETRON 4MG 2ML VIAL As Ordered ONE; +ROCURONIUM BROMIDE 50MG/5ML VIAL As Ordered ONE; +SUGAMMADEX SODIUM 500 MG/5 ML VIAL (BRIDION) As Ordered ONE; +propofoL 200 MG/20 ML VIAL As Ordered ONE
[2022-07-22] MEDS ORDERED: LR 1,000 ML IV SCH ×2 (08:25→13:35)
[2022-07-22] MEDS ORDERED: ROCURONIUM BROMIDE 50MG/5ML VIAL As Ordered ONE ×2 (08:30→11:34)
[2022-07-22] MEDS ORDERED: fentaNYL 250 MCG/5 ML INJECTION As Ordered ONE ×2 (09:33→12:12)
[2022-07-22] MEDS ORDERED: METO50TA7 PO (10:05)
[2022-07-22] MEDS ORDERED: METR-265 PO (10:05)
[2022-07-22] MEDS ORDERED: HOME MED LIST COMPLETE! XX SCH (10:10)
[2022-07-22] MEDS ORDERED: cefoTEtan DISODIUM 2 GM in D5W MINI-BAG PLUS 50 ML IV ONE (10:20)
[2022-07-22] MEDS ORDERED: ACETAMINOPHEN 1000MG 100ML IV BAG As Ordered ONE (11:00)
[2022-07-22] MEDS ORDERED: HYDROmorphone HCL 2MG/ML 1ML VIAL As Ordered ONE (12:39)
[2022-07-22] MEDS ORDERED: HYDROMORPHONE HCL 0.5 MG/ 0.5 ML SYRINGE IV PRN (13:35)
[2022-07-22] MEDS ORDERED: ONDANSETRON 4MG 2ML VIAL IV PRN ×2 (13:35→14:20)
[2022-07-22] MEDS ORDERED: oxyCODONE 5MG TAB PO PRN (13:35)
[2022-07-22] MEDS ORDERED: fentaNYL 100 MCG/2 ML INJECTION IV PRN (13:35)
[2022-07-22] MEDS ORDERED: ACETAMINOPHEN TAB 650MG DOSE (2X325MG) PO PRN (14:20)
[2022-07-22] MEDS ORDERED: MORPHINE 2 MG/ML 1ML VIAL IV PRN (14:20)
[2022-07-22] MEDS ORDERED: NORCO, ANEXSIA 5/325MG TABLET (HYDROcodone/ACETAMINOPHEN) PO PRN (14:20)
[2022-07-22] MEDS ORDERED: LABETALOL 100MG/20ML VIAL IV PRN (14:55)
[2022-07-22] MEDS: hydrALAZINE 20MG/ML 1ML VIAL IV PRN ×4 (15:01→15:23)
[2022-07-22] MEDS: NS 1,000 ML IV SCH ×2 (15:54→22:29)
[2022-07-22] MEDS: PIPERACILLIN/TAZOBACTAM SOD 3.375 GM in D5W MINI-BAG PLUS 50 ML IV SCH ×2 (15:54→21:29)
[2022-07-22] MEDS: NORCO, ANEXSIA 5/325MG TABLET (HYDROcodone/ACETAMINOPHEN) PO PRN (21:28)
[2022-07-22] MEDS: METOPROLOL TART 50 MG TAB PO SCH (21:28)
[2022-07-22] MEDS: SIMVASTATIN 20 MG TAB PO SCH (21:28)
[2022-07-23 00:45] VITALS: BP 146/59; TEMP 97.7; O2SAT 94
[2022-07-23] MEDS: PIPERACILLIN/TAZOBACTAM SOD 3.375 GM in D5W MINI-BAG PLUS 50 ML IV SCH ×4 (03:38→21:29)
[2022-07-23 04:45] VITALS: BP 144/61; TEMP 97.1; O2SAT 94
[2022-07-23 05:59] LABS: HEMATOCRIT 31.8 % (42.0-52.0); HEMOGLOBIN 9.9 g/dl (13.5-17.5); MEAN CORPUSCULAR HEMOGLOBIN 29.8 pg (27.0-33.0); MEAN CORPUSCULAR HGB CONC 31.1 g/dl (32.0-36.5); MEAN CORPUSCULAR VOLUME 95.8 fl (80.0-96.0); PLATELET COUNT, AUTOMATED 262 10^3/uL (150-450); RED BLOOD COUNT 3.32 10^6/uL (4.30-6.10); WHITE BLOOD COUNT 18.4 10^3/uL (4.0-10.0)
[2022-07-23] MEDS: NS 1,000 ML IV SCH ×3 (06:20→21:29)
[2022-07-23 06:26] LABS: CALCIUM LEVEL 7.2 MG/DL (8.3-10.6); CREATININE FOR GFR 1.82 MG/DL (0.70-1.30); GLOMERULAR FILTRATION RATE 38.3 (>35); POTASSIUM SERUM 4.7 MMOL/L (3.5-5.1)
[2022-07-23] MEDS: CALCITRIOL 0.25 MCG CAP (S0169) PO SCH (08:54)
[2022-07-23] MEDS: NORCO, ANEXSIA 5/325MG TABLET (HYDROcodone/ACETAMINOPHEN) PO PRN ×2 (08:54→16:30)
[2022-07-23] MEDS: PANTOPRAZOLE 40MG VIAL IV SCH (08:54)
[2022-07-23] MEDS: DIGOXIN 0.125 MG TAB PO SCH (08:55)
[2022-07-23] MEDS: ENOXAPARIN 30MG/0.3ML SYRINGE (J1650 PER 10MG) SC SCH (08:55)
[2022-07-23] MEDS: METOPROLOL TART 50 MG TAB PO SCH ×2 (08:58→21:29)
[2022-07-23 10:00] VITALS: BP 171/79; TEMP 97; O2SAT 94
[2022-07-23] MEDS: KETOROLAC 30 MG/ML 1ML VIAL IV PRN ×2 (13:55→21:54)
[2022-07-23 14:00] VITALS: BP 139/71; TEMP 97.7; O2SAT 96
[2022-07-23 18:00] VITALS: BP 143/71; TEMP 97.7; O2SAT 97
[2022-07-23] MEDS ORDERED: NS 500 ML IV ONE (19:35)
[2022-07-23 21:21] VITALS: BP 147/72; TEMP 97.7; O2SAT 97
[2022-07-23] MEDS: SIMVASTATIN 20 MG TAB PO SCH (21:28)
[2022-07-24] MEDS: PIPERACILLIN/TAZOBACTAM SOD 3.375 GM in D5W MINI-BAG PLUS 50 ML IV SCH ×4 (04:30→21:25)
[2022-07-24 06:00] VITALS: BP 151/73; TEMP 97.3; O2SAT 97
[2022-07-24] MEDS: KETOROLAC 30 MG/ML 1ML VIAL IV PRN (06:21)
[2022-07-24 07:31] LABS: HEMOGLOBIN 8.6 g/dl (13.5-17.5); MEAN CORPUSCULAR HEMOGLOBIN 30.4 pg (27.0-33.0); MEAN CORPUSCULAR HGB CONC 31.9 g/dl (32.0-36.5); MEAN CORPUSCULAR VOLUME 95.4 fl (80.0-96.0); PLATELET COUNT, AUTOMATED 187 10^3/uL (150-450); RED BLOOD COUNT 2.83 10^6/uL (4.30-6.10)
[2022-07-24 08:02] LABS: CALCIUM LEVEL 6.7 MG/DL (8.3-10.6); CREATININE FOR GFR 1.99 MG/DL (0.70-1.30); GLOMERULAR FILTRATION RATE 34.5 (>35); POTASSIUM SERUM 3.7 MMOL/L (3.5-5.1)
[2022-07-24] MEDS: CALCITRIOL 0.25 MCG CAP (S0169) PO SCH (08:13)
[2022-07-24] MEDS: PANTOPRAZOLE 40MG VIAL IV SCH (08:13)
[2022-07-24] MEDS: NS 1,000 ML IV SCH ×2 (08:13→17:15)
[2022-07-24] MEDS: DIGOXIN 0.125 MG TAB PO SCH (08:13)
[2022-07-24] MEDS: ENOXAPARIN 30MG/0.3ML SYRINGE (J1650 PER 10MG) SC SCH (08:14)
[2022-07-24] MEDS: METOPROLOL TART 50 MG TAB PO SCH ×2 (08:14→21:25)
[2022-07-24] MEDS ORDERED: CALCIUM GLUCONATE 1,000 MG in D5W MINI-BAG PLUS 100 ML IV ONE (11:00)
[2022-07-24 14:22] VITALS: BP 155/73; TEMP 97.2; O2SAT 95
[2022-07-24 19:47] VITALS: BP 176/66; TEMP 97.7; O2SAT 96
[2022-07-24] MEDS: SIMVASTATIN 20 MG TAB PO SCH (21:25)
[2022-07-25] MEDS: NS 1,000 ML IV SCH ×2 (04:22→06:20)
[2022-07-25] MEDS: PIPERACILLIN/TAZOBACTAM SOD 3.375 GM in D5W MINI-BAG PLUS 50 ML IV SCH ×2 (04:22→09:37)
[2022-07-25 05:26] VITALS: BP 173/67; TEMP 97.7; O2SAT 98
[2022-07-25 05:54] VITALS: BP 150/74
[2022-07-25 06:12] LABS: HEMATOCRIT 26.4 % (42.0-52.0); HEMOGLOBIN 8.2 g/dl (13.5-17.5); MEAN CORPUSCULAR HEMOGLOBIN 29.9 pg (27.0-33.0); MEAN CORPUSCULAR HGB CONC 31.1 g/dl (32.0-36.5); MEAN CORPUSCULAR VOLUME 96.4 fl (80.0-96.0); PLATELET COUNT, AUTOMATED 198 10^3/uL (150-450); RED BLOOD COUNT 2.74 10^6/uL (4.30-6.10); WHITE BLOOD COUNT 13.7 10^3/uL (4.0-10.0)
[2022-07-25 06:36] LABS: CALCIUM LEVEL 7.2 MG/DL (8.3-10.6); CREATININE FOR GFR 1.9 MG/DL (0.70-1.30); GLOMERULAR FILTRATION RATE 36.4 (>35); POTASSIUM SERUM 3.4 MMOL/L (3.5-5.1)
[2022-07-25] MEDS: PANTOPRAZOLE 40MG VIAL IV SCH (08:43)
[2022-07-25] MEDS: CALCITRIOL 0.25 MCG CAP (S0169) PO SCH (08:43)
[2022-07-25] MEDS: ENOXAPARIN 30MG/0.3ML SYRINGE (J1650 PER 10MG) SC SCH (08:44)
[2022-07-25] MEDS: METOPROLOL TART 50 MG TAB PO SCH ×2 (08:44→20:13)
[2022-07-25] MEDS: DIGOXIN 0.125 MG TAB PO SCH (08:44)
[2022-07-25] MEDS ORDERED: FUROSEMIDE 20 MG TAB PO ONE (09:10)
[2022-07-25 14:00] VITALS: BP 148/70; TEMP 97.2; O2SAT 96
[2022-07-25] MEDS: SIMVASTATIN 20 MG TAB PO SCH (20:12)
[2022-07-25 21:00] VITALS: BP 138/65; TEMP 97.3; O2SAT 98
[2022-07-26 06:00] VITALS: BP 164/72; TEMP 97.7; O2SAT 96
[2022-07-26 06:05] LABS: HEMATOCRIT 23.3 % (42.0-52.0); HEMOGLOBIN 7.1 g/dl (13.5-17.5); MEAN CORPUSCULAR HEMOGLOBIN 29.6 pg (27.0-33.0); MEAN CORPUSCULAR HGB CONC 30.5 g/dl (32.0-36.5); MEAN CORPUSCULAR VOLUME 97.1 fl (80.0-96.0); PLATELET COUNT, AUTOMATED 212 10^3/uL (150-450)
[2022-07-26 06:38] LABS: CALCIUM LEVEL 7.2 MG/DL (8.3-10.6); CREATININE FOR GFR 1.84 MG/DL (0.70-1.30); GLOMERULAR FILTRATION RATE 37.8 (>35); POTASSIUM SERUM 3.3 MMOL/L (3.5-5.1)
[2022-07-26] MEDS ORDERED: FUROSEMIDE 40MG/4ML VIAL IV ONE (07:00)
[2022-07-26] MEDS: PANTOPRAZOLE 40MG VIAL IV SCH (08:40)
[2022-07-26] MEDS: ENOXAPARIN 30MG/0.3ML SYRINGE (J1650 PER 10MG) SC SCH (08:41)
[2022-07-26] MEDS: CALCITRIOL 0.25 MCG CAP (S0169) PO SCH (08:41)
[2022-07-26] MEDS: DIGOXIN 0.125 MG TAB PO SCH (08:42)
[2022-07-26] MEDS: METOPROLOL TART 50 MG TAB PO SCH ×2 (08:43→21:20)
[2022-07-26 14:00] VITALS: BP 130/60; TEMP 97; O2SAT 97
[2022-07-26 20:00] VITALS: BP 141/54; TEMP 97.5; O2SAT 96
[2022-07-26] MEDS: SIMVASTATIN 20 MG TAB PO SCH (21:20)
[2022-07-27] VITALS (22 sets, daily range): BP systolic 85–164; BP diastolic 43–100; TEMP 96.8–99.6; O2SAT 93–100
[2022-07-27 07:36] LABS: HEMATOCRIT 22.7 % (42.0-52.0); HEMOGLOBIN 7.1 g/dl (13.5-17.5); MEAN CORPUSCULAR HEMOGLOBIN 30.3 pg (27.0-33.0); MEAN CORPUSCULAR HGB CONC 31.3 g/dl (32.0-36.5); PLATELET COUNT, AUTOMATED 224 10^3/uL (150-450); RED BLOOD COUNT 2.34 10^6/uL (4.30-6.10); WHITE BLOOD COUNT 8.9 10^3/uL (4.0-10.0)
[2022-07-27] MEDS: CALCITRIOL 0.25 MCG CAP (S0169) PO SCH (08:17)
[2022-07-27] MEDS: METOPROLOL TART 50 MG TAB PO SCH ×2 (08:17→20:37)
[2022-07-27] MEDS: DIGOXIN 0.125 MG TAB PO SCH (08:17)
[2022-07-27] MEDS: PANTOPRAZOLE 40MG VIAL IV SCH (08:17)
[2022-07-27] MEDS: ENOXAPARIN 30MG/0.3ML SYRINGE (J1650 PER 10MG) SC SCH (08:18)
[2022-07-27 08:27] LABS: CALCIUM LEVEL 7.3 MG/DL (8.3-10.6); CREATININE FOR GFR 1.71 MG/DL (0.70-1.30); GLOMERULAR FILTRATION RATE 41.1 (>35); POTASSIUM SERUM 2.9 MMOL/L (3.5-5.1)
[2022-07-27] MEDS ORDERED: POTASSIUM CHLORIDE 10MEQ SR TABLET PO SCH (09:00)
[2022-07-27] MEDS: NORCO, ANEXSIA 5/325MG TABLET (HYDROcodone/ACETAMINOPHEN) PO PRN (09:38)
[2022-07-27] MEDS: KETOROLAC 30 MG/ML 1ML VIAL IV PRN (10:52)
[2022-07-27] MEDS ORDERED: POTASSIUM CHLORIDE 10MEQ SR TABLET PO ONE (11:00)
[2022-07-27] MEDS ORDERED: ONDANSETRON 4MG 2ML VIAL As Ordered ONE (12:39)
[2022-07-27] MEDS ORDERED: ROCURONIUM BROMIDE 50MG/5ML VIAL As Ordered ONE (12:39)
[2022-07-27] MEDS ORDERED: PHENYLEPHRINE 10MG/ML 1ML VIAL As Ordered ONE (12:39)
[2022-07-27] MEDS ORDERED: propofoL 200 MG/20 ML VIAL As Ordered ONE (12:39)
[2022-07-27] MEDS ORDERED: MIDAZOLAM INJ 2MG/2ML VIAL As Ordered ONE (12:39)
[2022-07-27] MEDS ORDERED: fentaNYL 100 MCG/2 ML INJECTION As Ordered ONE (12:39)
[2022-07-27] MEDS ORDERED: LIDOCAINE 2% 100MG/5ML SDV (FOR ANES.) As Ordered ONE (12:39)
[2022-07-27] MEDS ORDERED: METOCLOPRAMIDE INJ 10MG/2ML VIAL As Ordered ONE (12:39)
[2022-07-27] MEDS ORDERED: SUCCINYLCHOLINE 100MG/5ML SYRINGE As Ordered ONE (12:57)
[2022-07-27] MEDS ORDERED: SUGAMMADEX SODIUM 500 MG/5 ML VIAL (BRIDION) As Ordered ONE (12:57)
[2022-07-27] MEDS ORDERED: HYDROmorphone HCL 2MG/ML 1ML VIAL As Ordered ONE (13:08)
[2022-07-27] MEDS ORDERED: NS 1,000 ML IV ONE ×2 (18:45→20:25)
[2022-07-27 19:35] LABS: ABG BASE EXCESS -20.5 (-2.0-2.0); ABG HCO3 6.5 MMOL/L (22.0-26.0); ABG O2 SATURATION 98.9 % (95.0-99.0); ABG PARTIAL PRESSURE O2 186.5 mmHg (75.0-100.0); ABG STANDARD HCO3 9.2 MMOL/L. (22.0-26.0); ABG TOTAL CO2 7.1 MMOL/L (23.0-31.0)
[2022-07-27 19:36] LABS: ABG pH (ARTERIAL) 7.151 UNITS (7.350-7.450)
[2022-07-27] MEDS ORDERED: LR 1,000 ML IV ONE (19:40)
[2022-07-27] MEDS ORDERED: SODIUM BICARBONATE 8.4% INJ 50ML SYRINGE IV STA (19:43)
[2022-07-27 20:00] LABS: HEMOGLOBIN 8.3 g/dl (13.5-17.5); MEAN CORPUSCULAR HEMOGLOBIN 31.2 pg (27.0-33.0); MEAN CORPUSCULAR HGB CONC 30.7 g/dl (32.0-36.5); MEAN CORPUSCULAR VOLUME 101.5 fl (80.0-96.0); PLATELET COUNT, AUTOMATED 286 10^3/uL (150-450); RED BLOOD COUNT 2.66 10^6/uL (4.30-6.10); WHITE BLOOD COUNT 19.8 10^3/uL (4.0-10.0)
[2022-07-27 20:11] LABS: INR 2.66; PROTHROMBIN TIME 28.8 SECONDS (12.5-14.5)
[2022-07-27 20:12] LABS: ALBUMIN 1.5 G/DL (3.2-5.2); ALKALINE PHOSPHATASE 55 U/L (46-116); ALT/SGPT 11 U/L (7.0-40); AST/SGOT 26 U/L (<34); BILIRUBIN,TOTAL 0.4 MG/DL (0.3-1.2); BLOOD UREA NITROGEN 23 MG/DL (9-23); CARBON DIOXIDE LEVEL < 10.0 MMOL/L (20-31); CHLORIDE LEVEL 110 MMOL/L (98-107); CREATININE FOR GFR 1.93 MG/DL (0.70-1.30); GLOMERULAR FILTRATION RATE 35.7 (>35); GLUCOSE, FASTING 187 MG/DL (74-106); PARTIAL THROMBOPLASTIN TIME 35.8 SECONDS (24.8-34.2); SODIUM LEVEL 140 MMOL/L (136-145); TOTAL PROTEIN 4.3 G/DL (5.7-8.2)
[2022-07-27 20:14] LABS: D-DIMER QUANT 2730.47 ng/ml (<500)
[2022-07-27] MEDS ORDERED: D5W MINI IV SCH (20:30)
[2022-07-27] MEDS ORDERED: VANCOMYCIN HCL IV SCH (20:30)
[2022-07-27 20:36] LABS: MAGNESIUM LEVEL 1.8 MG/DL (1.8-2.4); PHOSPHORUS LEVEL 5.3 MG/DL (2.4-5.1)
[2022-07-27] MEDS: PIPERACILLIN/TAZOBACTAM SOD 2.25 GM in D5W MINI-BAG PLUS 50 ML IV SCH (20:55)
[2022-07-27] MEDS ORDERED: VANCOMYCIN INTERMITTENT/PULSE DOSING BY CLINICAL PHARMACIST PER DOSING PROTOCOL XX SCH (21:00)
[2022-07-27] MEDS ORDERED: VANCOMYCIN HCL 1,000 MG, VIAL MATE ADAPTER 1 EACH in D5W 250 ML IV ONE (22:00)
[2022-07-27] MEDS ORDERED: SODIUM BICARBONATE 150 MEQ in STERILE WATER LITER BAG 1,000 ML IV SCH (22:00)
[2022-07-27 23:34] LABS: ABG BASE EXCESS -7.2 (-2.0-2.0); ABG HCO3 16.5 MMOL/L (22.0-26.0); ABG O2 SATURATION 98.4 % (95.0-99.0); ABG STANDARD HCO3 18.6 MMOL/L. (22.0-26.0); ABG TOTAL CO2 17.3 MMOL/L (23.0-31.0); ABG pH (ARTERIAL) 7.403 UNITS (7.350-7.450)
[2022-07-27 23:35] LABS: VENOUS BASE EXCESS -10.6 (-2.0-2.0); VENOUS HCO3 15.4 MMOL/L (23.0-27.0); VENOUS O2 SATURATION 96.9 % (60.0-80.0); VENOUS PARTIAL PRESSURE CO2 34.5 mmHg (38.0-50.0); VENOUS PARTIAL PRESSURE O2 104.1 mmHg (30.0-50.0); VENOUS PH 7.268 UNITS (7.330-7.430); VENOUS STANDARD HCO3 15.9 MMOL/L; VENOUS TOTAL CO2 16.5 MMOL/L (24.0-28.0)
[2022-07-28] VITALS (22 sets, daily range): BP systolic 103–141; BP diastolic 52–93; TEMP 97.8–98.8; O2SAT 96–100
[2022-07-28 00:01] LABS: CALCIUM LEVEL 6.3 MG/DL (8.3-10.6); CREATININE FOR GFR 2.03 MG/DL (0.70-1.30); GLOMERULAR FILTRATION RATE 33.7 (>35); POTASSIUM SERUM 3.8 MMOL/L (3.5-5.1)
[2022-07-28] MEDS ORDERED: NS 1,000 ML IV ONE (00:05)
[2022-07-28 01:31] LABS: HEMATOCRIT 23.6 % (42.0-52.0); HEMOGLOBIN 7.5 g/dl (13.5-17.5)
[2022-07-28] MEDS: PIPERACILLIN/TAZOBACTAM SOD 2.25 GM in D5W MINI-BAG PLUS 50 ML IV SCH ×4 (02:53→20:17)
[2022-07-28 04:40] LABS: BASO % 0.1 % (0.0-1.0); HEMATOCRIT 25.1 % (42.0-52.0); LYMPH # 0.6 10^3/uL (1.5-5.0); LYMPH % 4.8 % (24.0-44.0); MEAN CORPUSCULAR HEMOGLOBIN 30.8 pg (27.0-33.0); MEAN CORPUSCULAR HGB CONC 31.9 g/dl (32.0-36.5); MEAN CORPUSCULAR VOLUME 96.5 fl (80.0-96.0); MONO # 0.4 10^3/uL (0.0-0.8); MONO % 3.3 % (2.0-8.0); NEUTROPHILS % 90.8 % (36.0-66.0); WHITE BLOOD COUNT 12.1 10^3/uL (4.0-10.0)
[2022-07-28 04:41] LABS: PLATELET COUNT, AUTOMATED 185 10^3/uL (150-450)
[2022-07-28 04:46] LABS: ALBUMIN 1.5 G/DL (3.2-5.2); BILIRUBIN,TOTAL 0.5 MG/DL (0.3-1.2); CALCIUM LEVEL 6.1 MG/DL (8.3-10.6); CREATININE FOR GFR 2.08 MG/DL (0.70-1.30); GLOMERULAR FILTRATION RATE 32.8 (>35); MAGNESIUM LEVEL 1.6 MG/DL (1.8-2.4); POTASSIUM SERUM 3.7 MMOL/L (3.5-5.1); TOTAL PROTEIN 4.1 G/DL (5.7-8.2)
[2022-07-28 04:54] LABS: DIGOXIN LEVEL 2.7 NG/ML (0.8-2.0)
[2022-07-28] MEDS: MAG SULF 1GM/100ML (MAG RUN) 1 GM in IV 1 EA IV SCH ×2 (05:08→06:06)
[2022-07-28 05:54] LABS: ABG BASE EXCESS -3.9 (-2.0-2.0); ABG HCO3 19.5 MMOL/L (22.0-26.0); ABG O2 SATURATION 98.6 % (95.0-99.0); ABG PARTIAL PRESSURE CO2 29.3 mmHg (35.0-45.0); ABG PARTIAL PRESSURE O2 136.8 mmHg (75.0-100.0); ABG STANDARD HCO3 21.2 MMOL/L. (22.0-26.0); ABG TOTAL CO2 20.4 MMOL/L (23.0-31.0); ABG pH (ARTERIAL) 7.442 UNITS (7.350-7.450)
[2022-07-28] MEDS ORDERED: VANCOMYCIN HCL 1,000 MG, VIAL MATE ADAPTER 1 EACH in D5W 250 ML IV ONE (06:00)
[2022-07-28] MEDS: CALCITRIOL 0.25 MCG CAP (S0169) PO SCH (08:22)
[2022-07-28] MEDS: PANTOPRAZOLE 40MG VIAL IV SCH (08:32)
[2022-07-28] MEDS: HYDROMORPHONE HCL 0.5 MG/ 0.5 ML SYRINGE IV PRN (10:20)
[2022-07-28] MEDS: HEPARIN SOD (PORCINE) 5000UNITS/ML 1ML VIAL/SYRINGE SQ SCH ×3 (10:30→20:57)
[2022-07-28] MEDS: NS 1,000 ML IV SCH ×2 (11:00→20:17)
[2022-07-28 11:31] LABS: HEMATOCRIT 23.7 % (42.0-52.0); HEMOGLOBIN 7.4 g/dl (13.5-17.5)
[2022-07-28 13:34] LABS: PERCENT SATURATION 13.7 % (19.7-50.0)
[2022-07-28 13:36] LABS: FERRITIN 793.4 NG/ML (10.5-307.3)
[2022-07-28 13:37] LABS: FOLATE 4.24 NG/ML (>5.4)
[2022-07-28] MEDS: FOLIC ACID 1 MG in NS 50 ML IV SCH (20:57)
[2022-07-29] VITALS (29 sets, daily range): BP systolic 123–172; BP diastolic 59–74; TEMP 97.4–98.9; O2SAT 97–99
[2022-07-29] MEDS: PIPERACILLIN/TAZOBACTAM SOD 2.25 GM in D5W MINI-BAG PLUS 50 ML IV SCH ×4 (02:06→21:45)
[2022-07-29 04:43] LABS: BASO % 0.1 % (0.0-1.0); EOS % 0.2 % (0.0-3.0); LYMPH # 0.4 10^3/uL (1.5-5.0); LYMPH % 4.8 % (24.0-44.0); MEAN CORPUSCULAR HEMOGLOBIN 31.7 pg (27.0-33.0); MEAN CORPUSCULAR HGB CONC 32.7 g/dl (32.0-36.5); MEAN CORPUSCULAR VOLUME 97.1 fl (80.0-96.0); MONO # 0.4 10^3/uL (0.0-0.8); NEUTROPHILS # 8.2 10^3/uL (1.5-8.5); NEUTROPHILS % 89.3 % (36.0-66.0); PLATELET COUNT, AUTOMATED 142 10^3/uL (150-450); RED BLOOD COUNT 2.08 10^6/uL (4.30-6.10); WHITE BLOOD COUNT 9.2 10^3/uL (4.0-10.0)
[2022-07-29 04:46] LABS: HEMATOCRIT 20.2 % (42.0-52.0); HEMOGLOBIN 6.6 g/dl (13.5-17.5)
[2022-07-29 04:54] LABS: INR 2.58; PROTHROMBIN TIME 28.1 SECONDS (12.5-14.5)
[2022-07-29 04:57] LABS: D-DIMER QUANT 3300.9 ng/ml (<500)
[2022-07-29 05:12] LABS: VANCOMYCIN RANDOM 15.6 UG/ML
[2022-07-29 05:13] LABS: DIGOXIN LEVEL 1.9 NG/ML (0.8-2.0); PERCENT SATURATION 13.3 % (19.7-50.0)
[2022-07-29 05:17] LABS: ALBUMIN 1.3 G/DL (3.2-5.2); BILIRUBIN,TOTAL 0.5 MG/DL (0.3-1.2); CALCIUM LEVEL 6.4 MG/DL (8.3-10.6); CREATININE FOR GFR 2.3 MG/DL (0.70-1.30); FERRITIN 513.9 NG/ML (10.5-307.3); GLOMERULAR FILTRATION RATE 29.2 (>35); MAGNESIUM LEVEL 1.9 MG/DL (1.8-2.4); PHOSPHORUS LEVEL 3.6 MG/DL (2.4-5.1); POTASSIUM SERUM 3.2 MMOL/L (3.5-5.1); TOTAL PROTEIN 3.8 G/DL (5.7-8.2)
[2022-07-29] MEDS: NS 1,000 ML IV SCH ×2 (05:59→18:29)
[2022-07-29] MEDS ORDERED: POTASSIUM CHLORIDE 10MEQ SR TABLET PO ONE ×3 (07:00→17:55)
[2022-07-29] MEDS: PANTOPRAZOLE 40MG VIAL IV SCH (08:37)
[2022-07-29] MEDS: CALCITRIOL 0.25 MCG CAP (S0169) PO SCH (08:37)
[2022-07-29] MEDS: HEPARIN SOD (PORCINE) 5000UNITS/ML 1ML VIAL/SYRINGE SQ SCH ×2 (08:37→20:58)
[2022-07-29] MEDS: VANCOMYCIN HCL 1,000 MG, VIAL MATE ADAPTER 1 EACH in D5W 250 ML IV SCH (08:37)
[2022-07-29] MEDS ORDERED: FERRIC CARBOXYMALTOSE INJ 750 MG, VIAL MATE ADAPTER 1 EACH in NS 250 ML IV ONE (11:00)
[2022-07-29] MEDS: METOPROLOL TART 50 MG TAB PO SCH ×2 (11:10→20:58)
[2022-07-29 13:55] LABS: HEMATOCRIT 30.7 % (42.0-52.0)
[2022-07-29 14:16] LABS: HEMOGLOBIN 9.9 g/dl (13.5-17.5)
[2022-07-29 14:17] LABS: CREATININE FOR GFR 2.18 MG/DL (0.70-1.30); GLOMERULAR FILTRATION RATE 31.1 (>35); POTASSIUM SERUM 3.6 MMOL/L (3.5-5.1)
[2022-07-29] MEDS: HYDROMORPHONE HCL 0.5 MG/ 0.5 ML SYRINGE IV PRN (16:16)
[2022-07-29 20:56] LABS: APPEARANCE, URINE TURBID (CLEAR); BACTERIA, URINE AUTO NEGATIVE (NEGATIVE); BILIRUBIN, URINE AUTO NEGATIVE (NEGATIVE); BLOOD, URINE BLOOD 3+ (NEGATIVE); COLOR, URINE AMBER (YELLOW); GLUCOSE, URINE (UA) AUTO 1+ mg/dL (NEGATIVE); KETONE, URINE AUTO TRACE mg/dL (NEGATIVE); LEUKOCYTE ESTERASE, URINE AUTO 1+ (NEGATIVE); NITRITE, URINE AUTO NEGATIVE (NEGATIVE); PROTEIN, URINE AUTO 3+ mg/dL (NEGATIVE); RBC, URINE AUTO TNTC /HPF (0-3); SPECIFIC GRAVITY URINE AUTO 1.022 (1.002-1.035); SQUAMOUS EPITHELIAL CELL UR AU 0 /HPF (0-6); URIC ACID CRYSTALS MODERATE; UROBILINOGEN, URINE AUTO 0.2 mg/dL (0.0-2.0); WBC, URINE AUTO 7 /HPF (0-3)
[2022-07-29] MEDS: FOLIC ACID 1 MG in NS 50 ML IV SCH (20:57)
[2022-07-29] MEDS: SIMVASTATIN 20 MG TAB PO SCH (20:58)
[2022-07-30] VITALS (30 sets, daily range): BP systolic 151–205; BP diastolic 67–81; TEMP 97–98.9; O2SAT 87–99
[2022-07-30] MEDS: NS 1,000 ML IV SCH ×2 (02:45→06:00)
[2022-07-30] MEDS: PIPERACILLIN/TAZOBACTAM SOD 2.25 GM in D5W MINI-BAG PLUS 50 ML IV SCH ×4 (02:57→20:44)
[2022-07-30 04:29] LABS: BASO % 0.1 % (0.0-1.0); EOS # 0.1 10^3/uL (0.0-0.5); EOS % 0.7 % (0.0-3.0); HEMATOCRIT 26.1 % (42.0-52.0); HEMOGLOBIN 8.4 g/dl (13.5-17.5); LYMPH # 0.5 10^3/uL (1.5-5.0); LYMPH % 5.5 % (24.0-44.0); MEAN CORPUSCULAR HEMOGLOBIN 29.8 pg (27.0-33.0); MEAN CORPUSCULAR HGB CONC 32.2 g/dl (32.0-36.5); MEAN CORPUSCULAR VOLUME 92.6 fl (80.0-96.0); MONO # 0.4 10^3/uL (0.0-0.8); MONO % 4.6 % (2.0-8.0); NEUTROPHILS # 8.1 10^3/uL (1.5-8.5); NEUTROPHILS % 87.3 % (36.0-66.0); PLATELET COUNT, AUTOMATED 116 10^3/uL (150-450); RED BLOOD COUNT 2.82 10^6/uL (4.30-6.10); WHITE BLOOD COUNT 9.2 10^3/uL (4.0-10.0)
[2022-07-30 04:47] LABS: ALBUMIN 2.1 G/DL (3.2-5.2); BILIRUBIN,TOTAL 1.1 MG/DL (0.3-1.2); CALCIUM LEVEL 6.9 MG/DL (8.3-10.6); CREATININE FOR GFR 2.1 MG/DL (0.70-1.30); GLOMERULAR FILTRATION RATE 32.4 (>35); MAGNESIUM LEVEL 1.7 MG/DL (1.8-2.4); POTASSIUM SERUM 3.7 MMOL/L (3.5-5.1); TOTAL PROTEIN 4.3 G/DL (5.7-8.2)
[2022-07-30] MEDS ORDERED: hydrALAZINE 20MG/ML 1ML VIAL IV ONE (07:00)
[2022-07-30] MEDS ORDERED: MAG SULF 1GM/100ML (MAG RUN) 1 GM in IV 1 EA IV ONE (08:00)
[2022-07-30] MEDS: HEPARIN SOD (PORCINE) 5000UNITS/ML 1ML VIAL/SYRINGE SQ SCH ×3 (08:06→21:21)
[2022-07-30] MEDS: VANCOMYCIN HCL 1,000 MG, VIAL MATE ADAPTER 1 EACH in D5W 250 ML IV SCH (08:11)
[2022-07-30] MEDS: CALCITRIOL 0.25 MCG CAP (S0169) PO SCH (08:18)
[2022-07-30] MEDS: METOPROLOL TART 50 MG TAB PO SCH ×2 (08:19→20:45)
[2022-07-30] MEDS: PANTOPRAZOLE 40MG VIAL IV SCH (08:19)
[2022-07-30] MEDS ORDERED: POTASSIUM CHLORIDE 10MEQ SR TABLET PO SCH (09:00)
[2022-07-30] MEDS: FUROSEMIDE 100MG/10ML VIAL IV SCH ×2 (09:05→16:59)
[2022-07-30 10:01] LABS: INR 1.6; PROTHROMBIN TIME 19.3 SECONDS (12.5-14.5)
[2022-07-30] MEDS ORDERED: LABETALOL 100MG/20ML VIAL IV STA (10:16)
[2022-07-30] MEDS ORDERED: LIDOCAINE 1% MDV 20ML VIAL As Ordered ONE (12:40)
[2022-07-30] MEDS ORDERED: POTASSIUM CHLORIDE 10% LIQ 20MEQ/15ML UDC PO ONE ×2 (14:55→21:00)
[2022-07-30] MEDS: CALCIUM CARBONATE 500 MG CHEW U/D PO SCH ×2 (15:00→20:44)
[2022-07-30] MEDS: HYDROMORPHONE HCL 0.5 MG/ 0.5 ML SYRINGE IV PRN (15:48)
[2022-07-30] MEDS: **hydrALAZINE HCL** 25 MG TAB PO SCH ×2 (15:49→20:45)
[2022-07-30] MEDS: SODIUM CHLORIDE 0.9% INJ 10 ML SYR IV SCH (17:31)
[2022-07-30] MEDS: FOLIC ACID 1 MG in NS 50 ML IV SCH (19:44)
[2022-07-30] MEDS: SIMVASTATIN 20 MG TAB PO SCH (20:44)
[2022-07-31] VITALS (20 sets, daily range): BP systolic 149–179; BP diastolic 58–76; TEMP 96.9–98.2; O2SAT 90–99
[2022-07-31] MEDS: FUROSEMIDE 100MG/10ML VIAL IV SCH ×3 (01:05→16:58)
[2022-07-31] MEDS: PIPERACILLIN/TAZOBACTAM SOD 2.25 GM in D5W MINI-BAG PLUS 50 ML IV SCH ×4 (03:21→20:58)
[2022-07-31 05:32] LABS: BASO % 0.2 % (0.0-1.0); EOS # 0.1 10^3/uL (0.0-0.5); EOS % 1.1 % (0.0-3.0); HEMATOCRIT 23.3 % (42.0-52.0); HEMOGLOBIN 7.5 g/dl (13.5-17.5); LYMPH # 0.4 10^3/uL (1.5-5.0); LYMPH % 4.3 % (24.0-44.0); MEAN CORPUSCULAR HEMOGLOBIN 29.8 pg (27.0-33.0); MEAN CORPUSCULAR HGB CONC 32.2 g/dl (32.0-36.5); MEAN CORPUSCULAR VOLUME 92.5 fl (80.0-96.0); MONO # 0.5 10^3/uL (0.0-0.8); MONO % 4.5 % (2.0-8.0); NEUTROPHILS # 8.9 10^3/uL (1.5-8.5); NEUTROPHILS % 88.2 % (36.0-66.0); PLATELET COUNT, AUTOMATED 107 10^3/uL (150-450); RED BLOOD COUNT 2.52 10^6/uL (4.30-6.10); WHITE BLOOD COUNT 10.1 10^3/uL (4.0-10.0)
[2022-07-31 05:42] LABS: INR 1.85; PROTHROMBIN TIME 21.7 SECONDS (12.5-14.5)
[2022-07-31] MEDS: HEPARIN SOD (PORCINE) 5000UNITS/ML 1ML VIAL/SYRINGE SQ SCH ×2 (06:00→12:47)
[2022-07-31] MEDS: SODIUM CHLORIDE 0.9% INJ 10 ML SYR IV SCH ×2 (06:08→17:46)
[2022-07-31 06:15] LABS: ALBUMIN 3.6 G/DL (3.2-5.2); ALKALINE PHOSPHATASE 45 U/L (46-116); ALT/SGPT < 9 U/L (7.0-40); AST/SGOT 8 U/L (<34); BILIRUBIN,TOTAL 1.4 MG/DL (0.3-1.2); BLOOD UREA NITROGEN 19 MG/DL (9-23); CALCIUM LEVEL 8.1 MG/DL (8.3-10.6); CARBON DIOXIDE LEVEL 22 MMOL/L (20-31); CHLORIDE LEVEL 112 MMOL/L (98-107); CREATININE FOR GFR 1.93 MG/DL (0.70-1.30); GLOMERULAR FILTRATION RATE 35.7 (>35); GLUCOSE, FASTING 97 MG/DL (74-106); MAGNESIUM LEVEL 1.7 MG/DL (1.8-2.4); POTASSIUM SERUM 3.6 MMOL/L (3.5-5.1); SODIUM LEVEL 144 MMOL/L (136-145); TOTAL PROTEIN 5.6 G/DL (5.7-8.2)
[2022-07-31] MEDS: MAG SULF 1GM/100ML (MAG RUN) 1 GM in IV 1 EA IV SCH ×2 (08:11→10:09)
[2022-07-31] MEDS: CALCIUM CARBONATE 500 MG CHEW U/D PO SCH ×2 (08:11→21:29)
[2022-07-31] MEDS: PANTOPRAZOLE 40MG VIAL IV SCH (08:11)
[2022-07-31] MEDS: CALCITRIOL 0.25 MCG CAP (S0169) PO SCH (08:11)
[2022-07-31] MEDS: **hydrALAZINE HCL** 25 MG TAB PO SCH ×3 (08:11→21:29)
[2022-07-31] MEDS: amLODIPine 5 MG TAB PO SCH (08:12)
[2022-07-31] MEDS: METOPROLOL TART 50 MG TAB PO SCH ×2 (08:12→21:29)
[2022-07-31] MEDS ORDERED: amLODIPine 5 MG TAB PO SCH (09:00)
[2022-07-31] MEDS ORDERED: VANCOMYCIN HCL 750 MG, VIAL MATE ADAPTER 1 EACH in D5W 250 ML IV SCH (10:00)
[2022-07-31] MEDS ORDERED: guaiFENesin 200 MG TAB PO PRN (10:50)
[2022-07-31] MEDS: DARBEPOETIN 100MCG/0.5ML *NON-DIALYSIS* SYRINGE SC SCH (11:22)
[2022-07-31 11:55] LABS: HEMATOCRIT 22.9 % (42.0-52.0); HEMOGLOBIN 7.4 g/dl (13.5-17.5)
[2022-07-31 12:36] LABS: PLTBLUE- EDTA FREE CALC 105 K/mm3 (172-450); PLTBLUE- EDTA FREE MACHINE 95 10^3/uL (172-450)
[2022-07-31] MEDS: FOLIC ACID 1 MG in NS 50 ML IV SCH (20:18)
[2022-07-31] MEDS: SIMVASTATIN 20 MG TAB PO SCH (21:29)
[2022-08-01] MEDS: FUROSEMIDE 100MG/10ML VIAL IV SCH (02:53)
[2022-08-01] MEDS: PIPERACILLIN/TAZOBACTAM SOD 2.25 GM in D5W MINI-BAG PLUS 50 ML IV SCH ×4 (02:53→21:52)
[2022-08-01 04:11] VITALS: BP 149/67; TEMP 96.8; O2SAT 96
[2022-08-01] MEDS: SODIUM CHLORIDE 0.9% INJ 10 ML SYR IV PRN (04:43)
[2022-08-01] MEDS: SODIUM CHLORIDE 0.9% INJ 10 ML SYR IV SCH ×2 (04:50→17:52)
[2022-08-01] MEDS: HEPARIN SOD (PORCINE) 5000UNITS/ML 1ML VIAL/SYRINGE SQ SCH (04:50)
[2022-08-01 06:35] LABS: BASO % 0.1 % (0.0-1.0); EOS # 0.2 10^3/uL (0.0-0.5); EOS % 1.4 % (0.0-3.0); HEMATOCRIT 26.2 % (42.0-52.0); HEMOGLOBIN 8.6 g/dl (13.5-17.5); LYMPH # 0.6 10^3/uL (1.5-5.0); LYMPH % 4.2 % (24.0-44.0); MEAN CORPUSCULAR HGB CONC 32.8 g/dl (32.0-36.5); MEAN CORPUSCULAR VOLUME 91.3 fl (80.0-96.0); MONO # 0.7 10^3/uL (0.0-0.8); MONO % 4.9 % (2.0-8.0); NEUTROPHILS # 11.8 10^3/uL (1.5-8.5); NEUTROPHILS % 88.1 % (36.0-66.0); PLATELET COUNT, AUTOMATED 129 10^3/uL (150-450); RED BLOOD COUNT 2.87 10^6/uL (4.30-6.10); WHITE BLOOD COUNT 13.5 10^3/uL (4.0-10.0)
[2022-08-01 07:03] LABS: ALKALINE PHOSPHATASE 51 U/L (46-116); ALT/SGPT < 9 U/L (7.0-40); AST/SGOT < 8 U/L (<34); BILIRUBIN,TOTAL 1.5 MG/DL (0.3-1.2); BLOOD UREA NITROGEN 20 MG/DL (9-23); CALCIUM LEVEL 8.4 MG/DL (8.3-10.6); CARBON DIOXIDE LEVEL 24 MMOL/L (20-31); CHLORIDE LEVEL 107 MMOL/L (98-107); GLOMERULAR FILTRATION RATE 36.4 (>35); GLUCOSE, FASTING 111 MG/DL (74-106); MAGNESIUM LEVEL 1.7 MG/DL (1.8-2.4); POTASSIUM SERUM 2.7 MMOL/L (3.5-5.1); SODIUM LEVEL 142 MMOL/L (136-145); TOTAL PROTEIN 5.2 G/DL (5.7-8.2)
[2022-08-01 07:34] VITALS: BP 142/68; TEMP 96.9; O2SAT 98
[2022-08-01] MEDS: MAG SULF 1GM/100ML (MAG RUN) 1 GM in IV 1 EA IV SCH ×2 (07:50→09:03)
[2022-08-01] MEDS: POTASSIUM CHLORIDE 10MEQ SR TABLET PO SCH ×3 (07:51→12:15)
[2022-08-01] MEDS: amLODIPine 5 MG TAB PO SCH (09:03)
[2022-08-01] MEDS: CALCIUM CARBONATE 500 MG CHEW U/D PO SCH ×2 (09:03→21:51)
[2022-08-01] MEDS: CALCITRIOL 0.25 MCG CAP (S0169) PO SCH (09:04)
[2022-08-01] MEDS: METOPROLOL TART 50 MG TAB PO SCH ×2 (09:04→21:52)
[2022-08-01] MEDS: **hydrALAZINE HCL** 25 MG TAB PO SCH ×3 (09:04→21:52)
[2022-08-01] MEDS: PANTOPRAZOLE 40MG VIAL IV SCH (09:05)
[2022-08-01] MEDS: KCL 20MEQ IN 100ML SWI (KRUN) 20 MEQ in IV 1 EA IV SCH ×4 (11:09→12:15)
[2022-08-01 11:16] VITALS: BP 138/66; TEMP 97.1; O2SAT 99
[2022-08-01 15:29] VITALS: BP 146/67; TEMP 96.8; O2SAT 96
[2022-08-01] MEDS: ACETAMINOPHEN 500 MG TAB PO PRN (16:10)
[2022-08-01 19:53] VITALS: BP 138/63; TEMP 96.7; O2SAT 99
[2022-08-01] MEDS: FOLIC ACID 1 MG in NS 50 ML IV SCH (20:07)
[2022-08-01] MEDS: IPRATROPIUM 0.5MG/ALBUTEROL 2.5MG INH SOL UD 3ML (DUONEB) NEB PRN (20:13)
[2022-08-01] MEDS: SIMVASTATIN 20 MG TAB PO SCH (21:51)
[2022-08-02] VITALS (8 sets, daily range): BP systolic 108–144; BP diastolic 57–65; TEMP 96.3–98.5; O2SAT 97–100
[2022-08-02] MEDS: IPRATROPIUM 0.5MG/ALBUTEROL 2.5MG INH SOL UD 3ML (DUONEB) NEB PRN (00:16)
[2022-08-02] MEDS: PIPERACILLIN/TAZOBACTAM SOD 2.25 GM in D5W MINI-BAG PLUS 50 ML IV SCH ×4 (03:26→21:05)
[2022-08-02 05:44] LABS: BASO # 0.1 10^3/uL (0.0-0.2); BASO % 0.3 % (0.0-1.0); EOS # 0.2 10^3/uL (0.0-0.5); HEMATOCRIT 27.7 % (42.0-52.0); HEMOGLOBIN 8.8 g/dl (13.5-17.5); LYMPH # 0.7 10^3/uL (1.5-5.0); LYMPH % 4.2 % (24.0-44.0); MEAN CORPUSCULAR HEMOGLOBIN 29.7 pg (27.0-33.0); MEAN CORPUSCULAR HGB CONC 31.8 g/dl (32.0-36.5); MEAN CORPUSCULAR VOLUME 93.6 fl (80.0-96.0); MONO # 0.7 10^3/uL (0.0-0.8); MONO % 4.2 % (2.0-8.0); NEUTROPHILS # 14.3 10^3/uL (1.5-8.5); NEUTROPHILS % 88.8 % (36.0-66.0); PLATELET COUNT, AUTOMATED 143 10^3/uL (150-450); RED BLOOD COUNT 2.96 10^6/uL (4.30-6.10); WHITE BLOOD COUNT 16.1 10^3/uL (4.0-10.0)
[2022-08-02 06:00] LABS: ALBUMIN 2.6 G/DL (3.2-5.2); ALKALINE PHOSPHATASE 63 U/L (46-116); ALT/SGPT < 9 U/L (7.0-40); AST/SGOT 10 U/L (<34); BILIRUBIN,TOTAL 1.3 MG/DL (0.3-1.2); BLOOD UREA NITROGEN 18 MG/DL (9-23); CALCIUM LEVEL 8.5 MG/DL (8.3-10.6); CARBON DIOXIDE LEVEL 27 MMOL/L (20-31); CHLORIDE LEVEL 107 MMOL/L (98-107); CREATININE FOR GFR 1.73 MG/DL (0.70-1.30); GLOMERULAR FILTRATION RATE 40.6 (>35); GLUCOSE, FASTING 99 MG/DL (74-106); MAGNESIUM LEVEL 1.8 MG/DL (1.8-2.4); POTASSIUM SERUM 3.7 MMOL/L (3.5-5.1); SODIUM LEVEL 142 MMOL/L (136-145)
[2022-08-02] MEDS: SODIUM CHLORIDE 0.9% INJ 10 ML SYR IV SCH ×2 (06:30→17:19)
[2022-08-02] MEDS ORDERED: POTASSIUM CHLORIDE 10MEQ SR TABLET PO ONE (08:05)
[2022-08-02] MEDS: PANTOPRAZOLE 40MG VIAL IV SCH (09:55)
[2022-08-02] MEDS: CALCIUM CARBONATE 500 MG CHEW U/D PO SCH ×2 (09:55→21:05)
[2022-08-02] MEDS: CALCITRIOL 0.25 MCG CAP (S0169) PO SCH (09:56)
[2022-08-02] MEDS: METOPROLOL TART 50 MG TAB PO SCH ×2 (09:56→21:06)
[2022-08-02] MEDS: amLODIPine 5 MG TAB PO SCH (09:56)
[2022-08-02] MEDS: **hydrALAZINE HCL** 25 MG TAB PO SCH ×3 (09:56→21:06)
[2022-08-02] MEDS ORDERED: ISOVUE-370 76% 100ML VIAL As Ordered ONE (10:59)
[2022-08-02] MEDS: SODIUM CHLORIDE 0.9% INJ 10 ML SYR IV PRN (12:10)
[2022-08-02 12:55] LABS: LDH LACTATE DEHYDROGENASE 180 U/L (120-246)
[2022-08-02 15:32] LABS: PH BODY FLUID 7.645 UNITS (NOT ESTABLISHED); SOURCE, BODY FLUID pH PLEURAL
[2022-08-02 15:53] LABS: APPEARANCE, BODY FLUID HAZY (CLEAR); PLEURAL FL COLOR YELLOW (COLORLESS); SOURCE, BODY FLUID PLEURAL
[2022-08-02 16:20] LABS: SOURCE, BODY FLUID GLUCOSE PLEURAL
[2022-08-02 16:21] LABS: LDH, BODY FLUID 88 U/L (NOT ESTABLISHED); SOURCE, BODY FLUID LDH PLEURAL
[2022-08-02 16:22] LABS: AMYLASE, BODY FLUID < 20 U/L (NOT ESTABLISHED); SOURCE, BODY FLUID AMYLASE PLEURAL; SOURCE, BODY FLUID TOT PROTEIN PLEURAL; TOTAL PROTEIN, BODY FLUID 2.1 G/DL (NOT ESTABLISHED)
[2022-08-02] MEDS ORDERED: NS 500 ML IV ONE (19:40)
[2022-08-02] MEDS: HEPARIN SOD (PORCINE) 5000UNITS/ML 1ML VIAL/SYRINGE SQ SCH (21:05)
[2022-08-02] MEDS: SIMVASTATIN 20 MG TAB PO SCH (21:05)
[2022-08-02] MEDS: FOLIC ACID 1 MG in NS 50 ML IV SCH (21:06)
[2022-08-03 04:27] VITALS: BP 128/59; TEMP 96.6; O2SAT 96
[2022-08-03 06:04] LABS: BASO # 0.1 10^3/uL (0.0-0.2); BASO % 0.3 % (0.0-1.0); EOS # 0.2 10^3/uL (0.0-0.5); EOS % 1.5 % (0.0-3.0); HEMATOCRIT 30.2 % (42.0-52.0); HEMOGLOBIN 9.4 g/dl (13.5-17.5); MEAN CORPUSCULAR HEMOGLOBIN 29.9 pg (27.0-33.0); MEAN CORPUSCULAR HGB CONC 31.1 g/dl (32.0-36.5); MEAN CORPUSCULAR VOLUME 96.2 fl (80.0-96.0); MONO # 0.7 10^3/uL (0.0-0.8); MONO % 4.5 % (2.0-8.0); NEUTROPHILS # 13.8 10^3/uL (1.5-8.5); NEUTROPHILS % 86.5 % (36.0-66.0); PLATELET COUNT, AUTOMATED 154 10^3/uL (150-450); RED BLOOD COUNT 3.14 10^6/uL (4.30-6.10); WHITE BLOOD COUNT 15.9 10^3/uL (4.0-10.0)
[2022-08-03 06:27] LABS: ALBUMIN 2.3 G/DL (3.2-5.2); ALKALINE PHOSPHATASE 64 U/L (46-116); ALT/SGPT < 9 U/L (7.0-40); AST/SGOT 13 U/L (<34); BILIRUBIN,TOTAL 1.1 MG/DL (0.3-1.2); BLOOD UREA NITROGEN 20 MG/DL (9-23); CALCIUM LEVEL 8.7 MG/DL (8.3-10.6); CARBON DIOXIDE LEVEL 26 MMOL/L (20-31); CHLORIDE LEVEL 107 MMOL/L (98-107); CREATININE FOR GFR 1.82 MG/DL (0.70-1.30); GLOMERULAR FILTRATION RATE 38.3 (>35); GLUCOSE, FASTING 81 MG/DL (74-106); MAGNESIUM LEVEL 1.7 MG/DL (1.8-2.4); POTASSIUM SERUM 4.3 MMOL/L (3.5-5.1); SODIUM LEVEL 142 MMOL/L (136-145); TOTAL PROTEIN 4.9 G/DL (5.7-8.2)
[2022-08-03] MEDS: SODIUM CHLORIDE 0.9% INJ 10 ML SYR IV SCH ×2 (06:27→18:11)
[2022-08-03] MEDS ORDERED: MAG SULF 1GM/100ML (MAG RUN) 1 GM in IV 1 EA IV ONE (07:35)
[2022-08-03 08:39] VITALS: BP 135/67; TEMP 96.8; O2SAT 99
[2022-08-03] MEDS: CALCITRIOL 0.25 MCG CAP (S0169) PO SCH (08:49)
[2022-08-03] MEDS: ACETAMINOPHEN 500 MG TAB PO PRN ×2 (08:49→18:10)
[2022-08-03] MEDS: PANTOPRAZOLE 40MG VIAL IV SCH (08:49)
[2022-08-03] MEDS: HEPARIN SOD (PORCINE) 5000UNITS/ML 1ML VIAL/SYRINGE SQ SCH (08:49)
[2022-08-03] MEDS: ASPIRIN 81MG ENTERIC TABLET PO SCH (08:50)
[2022-08-03] MEDS: amLODIPine 5 MG TAB PO SCH (08:50)
[2022-08-03] MEDS: CALCIUM CARBONATE 500 MG CHEW U/D PO SCH ×2 (08:50→21:44)
[2022-08-03] MEDS: **hydrALAZINE HCL** 25 MG TAB PO SCH ×3 (08:51→21:00)
[2022-08-03] MEDS: METOPROLOL TART 50 MG TAB PO SCH ×2 (08:51→21:44)
[2022-08-03] MEDS ORDERED: MORPHINE 15 MG SA TAB PO ONE (11:15)
[2022-08-03 11:52] VITALS: BP 132/61; TEMP 96.7; O2SAT 100
[2022-08-03] MEDS: FOLIC ACID 1MG TAB PO SCH (12:26)
[2022-08-03 14:12] LABS: HEMATOCRIT 30.3 % (42.0-52.0); HEMOGLOBIN 9.6 g/dl (13.5-17.5)
[2022-08-03 16:04] VITALS: BP 146/67; TEMP 96.7; O2SAT 98
[2022-08-03 17:50] VITALS: BP 150/72; TEMP 97.2; O2SAT 97
[2022-08-03] MEDS: RIVAROXABAN 10MG TAB (XARELTO) PO SCH (18:10)
[2022-08-03 21:02] VITALS: BP 121/68; TEMP 97.7; O2SAT 99
[2022-08-03] MEDS: SIMVASTATIN 20 MG TAB PO SCH (21:44)
[2022-08-03] MEDS: SODIUM CHLORIDE 0.9% INJ 10 ML SYR IV PRN (21:59)
[2022-08-03 22:12] LABS: HEMATOCRIT 29.8 % (42.0-52.0); HEMOGLOBIN 9.3 g/dl (13.5-17.5)
[2022-08-04 02:00] VITALS: BP 122/66; TEMP 97.7; O2SAT 98
[2022-08-04 05:41] VITALS: BP 119/65; TEMP 97.7; O2SAT 99
[2022-08-04] MEDS: SODIUM CHLORIDE 0.9% INJ 10 ML SYR IV SCH ×2 (05:42→18:34)
[2022-08-04 05:53] LABS: HEMATOCRIT 28.7 % (42.0-52.0); HEMOGLOBIN 9.1 g/dl (13.5-17.5)
[2022-08-04 06:16] LABS: CALCIUM LEVEL 8.6 MG/DL (8.3-10.6); CREATININE FOR GFR 1.93 MG/DL (0.70-1.30); GLOMERULAR FILTRATION RATE 35.7 (>35); POTASSIUM SERUM 4.5 MMOL/L (3.5-5.1)
[2022-08-04] MEDS: CALCIUM CARBONATE 500 MG CHEW U/D PO SCH ×2 (07:48→21:03)
[2022-08-04] MEDS: PANTOPRAZOLE 40MG VIAL IV SCH (07:48)
[2022-08-04] MEDS: FOLIC ACID 1MG TAB PO SCH (07:49)
[2022-08-04] MEDS: CALCITRIOL 0.25 MCG CAP (S0169) PO SCH (07:50)
[2022-08-04] MEDS: ASPIRIN 81MG ENTERIC TABLET PO SCH (07:50)
[2022-08-04] MEDS: amLODIPine 5 MG TAB PO SCH (07:53)
[2022-08-04] MEDS: METOPROLOL TART 50 MG TAB PO SCH ×2 (07:54→21:04)
[2022-08-04] MEDS: **hydrALAZINE HCL** 25 MG TAB PO SCH ×3 (07:54→21:04)
[2022-08-04 07:56] VITALS: BP 109/54
[2022-08-04 08:10] LABS: MEAN CORPUSCULAR HEMOGLOBIN 30.4 pg (27.0-33.0); MEAN CORPUSCULAR HGB CONC 31.2 g/dl (32.0-36.5); MEAN CORPUSCULAR VOLUME 97.4 fl (80.0-96.0); PLATELET COUNT, AUTOMATED 170 10^3/uL (150-450); RED BLOOD COUNT 3.03 10^6/uL (4.30-6.10); WHITE BLOOD COUNT 22.7 10^3/uL (4.0-10.0)
[2022-08-04 14:00] VITALS: BP 111/54; TEMP 97.5; O2SAT 94
[2022-08-04] MEDS: AMPICILLIN SOD/SULBACTAM SOD 1.5 GM in D5W MINI-BAG PLUS 50 ML IV SCH ×2 (15:45→21:05)
[2022-08-04] MEDS: RIVAROXABAN 10MG TAB (XARELTO) PO SCH (18:34)
[2022-08-04 19:25] LABS: HEMATOCRIT 27.5 % (42.0-52.0); HEMOGLOBIN 8.8 g/dl (13.5-17.5)
[2022-08-04 20:50] VITALS: BP 132/82; TEMP 97.7; O2SAT 97
[2022-08-04] MEDS: SIMVASTATIN 20 MG TAB PO SCH (21:03)
[2022-08-05 00:33] LABS: APPEARANCE, URINE HAZY (CLEAR); BACTERIA, URINE AUTO NEGATIVE (NEGATIVE); BILIRUBIN, URINE AUTO NEGATIVE (NEGATIVE); BLOOD, URINE BLOOD NEGATIVE (NEGATIVE); COLOR, URINE AMBER (YELLOW); GLUCOSE, URINE (UA) AUTO NEGATIVE (NEGATIVE); KETONE, URINE AUTO NEGATIVE (NEGATIVE); LEUKOCYTE ESTERASE, URINE AUTO NEGATIVE (NEGATIVE); MUCUS, URINE SMALL (NEGATIVE); NITRITE, URINE AUTO NEGATIVE (NEGATIVE); PROTEIN, URINE AUTO 1+ mg/dL (NEGATIVE); RBC, URINE AUTO 2 /HPF (0-3); SPECIFIC GRAVITY URINE AUTO 1.036 (1.002-1.035); SQUAMOUS EPITHELIAL CELL UR AU 0 /HPF (0-6); URIC ACID CRYSTALS SMALL; UROBILINOGEN, URINE AUTO 0.2 mg/dL (0.0-2.0); WBC, URINE AUTO 6 /HPF (0-3)
[2022-08-05] MEDS: AMPICILLIN SOD/SULBACTAM SOD 1.5 GM in D5W MINI-BAG PLUS 50 ML IV SCH ×2 (03:26→10:13)
[2022-08-05] MEDS: SODIUM CHLORIDE 0.9% INJ 10 ML SYR IV SCH ×2 (05:39→16:52)
[2022-08-05] MEDS: SODIUM CHLORIDE 0.9% INJ 10 ML SYR IV PRN ×2 (05:40→11:18)
[2022-08-05 06:00] VITALS: BP 104/58; TEMP 97.8; O2SAT 99
[2022-08-05 06:11] LABS: HEMATOCRIT 26.3 % (42.0-52.0); HEMOGLOBIN 8.2 g/dl (13.5-17.5)
[2022-08-05 07:42] LABS: MEAN CORPUSCULAR HEMOGLOBIN 30.5 pg (27.0-33.0); MEAN CORPUSCULAR HGB CONC 30.7 g/dl (32.0-36.5); MEAN CORPUSCULAR VOLUME 99.2 fl (80.0-96.0); PLATELET COUNT, AUTOMATED 161 10^3/uL (150-450); RED BLOOD COUNT 2.66 10^6/uL (4.30-6.10); WHITE BLOOD COUNT 14.1 10^3/uL (4.0-10.0)
[2022-08-05 08:24] LABS: CALCIUM LEVEL 7.7 MG/DL (8.3-10.6); CREATININE FOR GFR 2.15 MG/DL (0.70-1.30); GLOMERULAR FILTRATION RATE 31.6 (>35); POTASSIUM SERUM 4.8 MMOL/L (3.5-5.1)
[2022-08-05] MEDS: amLODIPine 5 MG TAB PO SCH (09:00)
[2022-08-05] MEDS: **hydrALAZINE HCL** 25 MG TAB PO SCH ×3 (09:00→21:00)
[2022-08-05 10:10] LABS: UNFRACTIONATED HEPARIN HI DOSE <1 % (0-20); UNFRACTIONATED HEPARIN LOW DOS <1 % (0-20)
[2022-08-05] MEDS: CALCIUM CARBONATE 500 MG CHEW U/D PO SCH ×2 (10:12→21:23)
[2022-08-05] MEDS: FOLIC ACID 1MG TAB PO SCH (10:13)
[2022-08-05] MEDS: ASPIRIN 81MG ENTERIC TABLET PO SCH (10:13)
[2022-08-05] MEDS: PANTOPRAZOLE 40MG VIAL IV SCH (10:13)
[2022-08-05] MEDS: CALCITRIOL 0.25 MCG CAP (S0169) PO SCH (10:13)
[2022-08-05] MEDS: METOPROLOL TART 50 MG TAB PO SCH ×2 (10:13→21:24)
[2022-08-05 10:45] LABS: C REACTIVE PROTEIN QUANTITATIV 27.6 MG/DL (<1.0)
[2022-08-05 14:00] VITALS: BP 118/61; TEMP 97.3; O2SAT 97
[2022-08-05] MEDS: RIVAROXABAN 10MG TAB (XARELTO) PO SCH (17:36)
[2022-08-05 21:10] VITALS: BP 116/60; TEMP 97; O2SAT 96
[2022-08-05] MEDS: SIMVASTATIN 20 MG TAB PO SCH (21:23)
[2022-08-05] MEDS: AMPICILLIN SOD/SULBACTAM SOD 3 GM in D5W MINI-BAG PLUS 100 ML IV SCH (21:25)
[2022-08-06 05:00] VITALS: BP 114/60; TEMP 97.3; O2SAT 100
[2022-08-06] MEDS: SODIUM CHLORIDE 0.9% INJ 10 ML SYR IV SCH ×2 (05:40→17:25)
[2022-08-06 05:58] LABS: HEMATOCRIT 26.5 % (42.0-52.0); HEMOGLOBIN 8.2 g/dl (13.5-17.5); MEAN CORPUSCULAR HEMOGLOBIN 30.4 pg (27.0-33.0); MEAN CORPUSCULAR HGB CONC 30.9 g/dl (32.0-36.5); MEAN CORPUSCULAR VOLUME 98.1 fl (80.0-96.0); PLATELET COUNT, AUTOMATED 185 10^3/uL (150-450); WHITE BLOOD COUNT 13.4 10^3/uL (4.0-10.0)
[2022-08-06 06:26] LABS: C REACTIVE PROTEIN QUANTITATIV 24.6 MG/DL (<1.0)
[2022-08-06 06:27] LABS: CALCIUM LEVEL 8.1 MG/DL (8.3-10.6); CREATININE FOR GFR 2.22 MG/DL (0.70-1.30); GLOMERULAR FILTRATION RATE 30.4 (>35); POTASSIUM SERUM 4.4 MMOL/L (3.5-5.1)
[2022-08-06] MEDS: AMPICILLIN SOD/SULBACTAM SOD 3 GM in D5W MINI-BAG PLUS 100 ML IV SCH ×2 (08:43→20:37)
[2022-08-06] MEDS: amLODIPine 5 MG TAB PO SCH (08:44)
[2022-08-06] MEDS: CALCIUM CARBONATE 500 MG CHEW U/D PO SCH ×2 (08:44→20:37)
[2022-08-06] MEDS: CALCITRIOL 0.25 MCG CAP (S0169) PO SCH (08:44)
[2022-08-06] MEDS: ASPIRIN 81MG ENTERIC TABLET PO SCH (08:44)
[2022-08-06] MEDS: FOLIC ACID 1MG TAB PO SCH (08:47)
[2022-08-06] MEDS: **hydrALAZINE HCL** 25 MG TAB PO SCH ×3 (08:47→20:38)
[2022-08-06] MEDS: METOPROLOL TART 50 MG TAB PO SCH ×2 (08:47→20:38)
[2022-08-06] MEDS: PANTOPRAZOLE 40MG VIAL IV SCH (08:52)
[2022-08-06] MEDS ORDERED: RAMELTEON 8 MG TAB (ROZEREM) PO PRN (09:20)
[2022-08-06] MEDS: SODIUM CHLORIDE 0.9% INJ 10 ML SYR IV PRN ×2 (09:39→21:28)
[2022-08-06 14:00] VITALS: BP 132/65; TEMP 97.7; O2SAT 100
[2022-08-06] MEDS: RIVAROXABAN 10MG TAB (XARELTO) PO SCH (17:25)
[2022-08-06] MEDS: SIMVASTATIN 20 MG TAB PO SCH (20:37)
[2022-08-06 20:53] VITALS: BP 122/58; TEMP 97.9; O2SAT 97
[2022-08-07 06:00] VITALS: BP 133/54; TEMP 97.3; O2SAT 96
[2022-08-07 06:23] LABS: HEMOGLOBIN 8.2 g/dl (13.5-17.5); MEAN CORPUSCULAR HEMOGLOBIN 30.9 pg (27.0-33.0); MEAN CORPUSCULAR HGB CONC 31.5 g/dl (32.0-36.5); MEAN CORPUSCULAR VOLUME 98.1 fl (80.0-96.0); PLATELET COUNT, AUTOMATED 188 10^3/uL (150-450); RED BLOOD COUNT 2.65 10^6/uL (4.30-6.10); WHITE BLOOD COUNT 10.8 10^3/uL (4.0-10.0)
[2022-08-07] MEDS: SODIUM CHLORIDE 0.9% INJ 10 ML SYR IV SCH ×2 (06:34→18:24)
[2022-08-07 06:48] LABS: CALCIUM LEVEL 7.8 MG/DL (8.3-10.6); CREATININE FOR GFR 2.19 MG/DL (0.70-1.30); GLOMERULAR FILTRATION RATE 30.9 (>35); POTASSIUM SERUM 4.4 MMOL/L (3.5-5.1)
[2022-08-07] MEDS: CALCITRIOL 0.25 MCG CAP (S0169) PO SCH (10:15)
[2022-08-07] MEDS: ASPIRIN 81MG ENTERIC TABLET PO SCH (10:15)
[2022-08-07] MEDS: PANTOPRAZOLE 40MG VIAL IV SCH (10:15)
[2022-08-07] MEDS: AMPICILLIN SOD/SULBACTAM SOD 3 GM in D5W MINI-BAG PLUS 100 ML IV SCH ×2 (10:15→20:27)
[2022-08-07] MEDS: CALCIUM CARBONATE 500 MG CHEW U/D PO SCH ×2 (10:16→20:27)
[2022-08-07] MEDS: FOLIC ACID 1MG TAB PO SCH (10:16)
[2022-08-07] MEDS: DARBEPOETIN 100MCG/0.5ML *NON-DIALYSIS* SYRINGE SC SCH (10:17)
[2022-08-07] MEDS: amLODIPine 5 MG TAB PO SCH (10:18)
[2022-08-07] MEDS: METOPROLOL TART 50 MG TAB PO SCH ×2 (10:18→20:12)
[2022-08-07] MEDS: **hydrALAZINE HCL** 25 MG TAB PO SCH ×3 (10:18→20:12)
[2022-08-07 13:45] VITALS: BP 110/54; TEMP 97; O2SAT 99
[2022-08-07] MEDS: RIVAROXABAN 10MG TAB (XARELTO) PO SCH (18:23)
[2022-08-07] MEDS: SIMVASTATIN 20 MG TAB PO SCH (20:27)
[2022-08-07 20:52] VITALS: BP 102/54; TEMP 97.3; O2SAT 99
[2022-08-07] MEDS: SODIUM CHLORIDE 0.9% INJ 10 ML SYR IV PRN (21:40)
[2022-08-08] MEDS: SODIUM CHLORIDE 0.9% INJ 10 ML SYR IV SCH ×3 (05:12→18:14)
[2022-08-08 06:00] VITALS: BP 101/54; TEMP 97.3; O2SAT 100
[2022-08-08 06:06] LABS: HEMATOCRIT 23.6 % (42.0-52.0); HEMOGLOBIN 7.3 g/dl (13.5-17.5); MEAN CORPUSCULAR HEMOGLOBIN 30.7 pg (27.0-33.0); MEAN CORPUSCULAR HGB CONC 30.9 g/dl (32.0-36.5); MEAN CORPUSCULAR VOLUME 99.2 fl (80.0-96.0); PLATELET COUNT, AUTOMATED 180 10^3/uL (150-450); RED BLOOD COUNT 2.38 10^6/uL (4.30-6.10); WHITE BLOOD COUNT 8.8 10^3/uL (4.0-10.0)
[2022-08-08 06:44] LABS: CALCIUM LEVEL 7.8 MG/DL (8.3-10.6); CREATININE FOR GFR 2.18 MG/DL (0.70-1.30); GLOMERULAR FILTRATION RATE 31.1 (>35); POTASSIUM SERUM 4.4 MMOL/L (3.5-5.1)
[2022-08-08] MEDS: amLODIPine 5 MG TAB PO SCH (09:00)
[2022-08-08] MEDS: METOPROLOL TART 50 MG TAB PO SCH ×2 (09:00→21:26)
[2022-08-08] MEDS: **hydrALAZINE HCL** 25 MG TAB PO SCH ×3 (09:00→21:26)
[2022-08-08] MEDS: PANTOPRAZOLE 40MG VIAL IV SCH (09:09)
[2022-08-08] MEDS: CALCIUM CARBONATE 500 MG CHEW U/D PO SCH (09:10)
[2022-08-08] MEDS: FOLIC ACID 1MG TAB PO SCH (09:10)
[2022-08-08] MEDS: ASPIRIN 81MG ENTERIC TABLET PO SCH (09:10)
[2022-08-08] MEDS: CALCITRIOL 0.25 MCG CAP (S0169) PO SCH (09:10)
[2022-08-08] MEDS: AMPICILLIN SOD/SULBACTAM SOD 3 GM in D5W MINI-BAG PLUS 100 ML IV SCH (09:57)
[2022-08-08 14:00] VITALS: BP 137/65; TEMP 97.5; O2SAT 99
[2022-08-08] MEDS: RIVAROXABAN 10MG TAB (XARELTO) PO SCH (18:14)
[2022-08-08 20:40] VITALS: BP 131/62; TEMP 97.3; O2SAT 98
[2022-08-08] MEDS: SIMVASTATIN 20 MG TAB PO SCH (21:25)
[2022-08-09] VITALS (8 sets, daily range): BP systolic 120–129; BP diastolic 58–63; TEMP 97.2–97.7; O2SAT 99–100
[2022-08-09] MEDS: SODIUM CHLORIDE 0.9% INJ 10 ML SYR IV SCH (06:01)
[2022-08-09 06:49] LABS: HEMATOCRIT 24.1 % (42.0-52.0); HEMOGLOBIN 7.3 g/dl (13.5-17.5); MEAN CORPUSCULAR HEMOGLOBIN 30.3 pg (27.0-33.0); MEAN CORPUSCULAR HGB CONC 30.3 g/dl (32.0-36.5); PLATELET COUNT, AUTOMATED 198 10^3/uL (150-450); RED BLOOD COUNT 2.41 10^6/uL (4.30-6.10); WHITE BLOOD COUNT 8.9 10^3/uL (4.0-10.0)
[2022-08-09 07:16] LABS: C REACTIVE PROTEIN QUANTITATIV 12.6 MG/DL (<1.0); CREATININE FOR GFR 2.12 MG/DL (0.70-1.30); GLOMERULAR FILTRATION RATE 32.1 (>35); POTASSIUM SERUM 3.9 MMOL/L (3.5-5.1)
[2022-08-09] MEDS: METOPROLOL TART 50 MG TAB PO SCH (09:00)
[2022-08-09] MEDS: **hydrALAZINE HCL** 25 MG TAB PO SCH ×2 (09:00→16:00)
[2022-08-09] MEDS: PANTOPRAZOLE 40MG VIAL IV SCH (09:51)
[2022-08-09] MEDS: ASPIRIN 81MG ENTERIC TABLET PO SCH (09:51)
[2022-08-09] MEDS: CALCITRIOL 0.25 MCG CAP (S0169) PO SCH (09:51)
[2022-08-09] MEDS: amLODIPine 5 MG TAB PO SCH (09:53)
[2022-08-09] MEDS: FOLIC ACID 1MG TAB PO SCH (09:56)
[2022-08-09] MEDS: SODIUM CHLORIDE 0.9% INJ 10 ML SYR IV PRN (10:02)
== END 2022-08-09 17:34 | disposition home health service (06) | DRG 329 ==
LOC: M OR 08:17 → M MSPAV 15:39 → M ICU 07-27 18:58 → M PCU 07-31 13:21 → M MSPAV 08-03 17:57
PROVIDERS: ADMIT Surgery; ATTEND Surgery
PROC: 0DBF0ZZ Excision of Right Large Intestine, Open Approach (ICD-10-PCS; principal; 2022-07-22 10:10)
PROC: 30233N1 Transfusion of Nonautologous Red Blood Cells into Peripheral Vein, Percutaneous Approach (ICD-10-PCS; 2022-07-27)
PROC: 0DB80ZZ Excision of Small Intestine, Open Approach (ICD-10-PCS; 2022-07-28)
PROC: 30233J1 Transfusion of Nonautologous Serum Albumin into Peripheral Vein, Percutaneous Approach (ICD-10-PCS; 2022-07-29)
PROC: 05H533Z Insertion of Infusion Device into Right Subclavian Vein, Percutaneous Approach (ICD-10-PCS; 2022-07-30)
PROC: 0W993ZX Drainage of Right Pleural Cavity, Percutaneous Approach, Diagnostic (ICD-10-PCS; 2022-08-02)
PROC: B246ZZZ Ultrasonography of Right and Left Heart (ICD-10-PCS; 2022-08-03)
DX: C18.0 Malignant neoplasm of cecum (principal); T81.12XA Postprocedural septic shock, initial encounter; A41.9 Sepsis, unspecified organism; D65 Disseminated intravascular coagulation [defibrination syndrome]; K55.019 Acute (reversible) ischemia of small intestine, extent unspecified; K65.0 Generalized (acute) peritonitis; N17.0 Acute kidney failure with tubular necrosis; D62 Acute posthemorrhagic anemia; E87.20 Acidosis, unspecified; K91.89 Other postprocedural complications and disorders of digestive system; T81.44XA Sepsis following a procedure, initial encounter; N18.4 Chronic kidney disease, stage 4 (severe); C18.2 Malignant neoplasm of ascending colon; J90 Pleural effusion, not elsewhere classified; I12.9 Hypertensive chronic kidney disease with stage 1 through stage 4 chronic kidney disease, or unspecified chronic kidney disease; Z53.31 Laparoscopic surgical procedure converted to open procedure; I48.91 Unspecified atrial fibrillation; J45.909 Unspecified asthma, uncomplicated; I25.10 Atherosclerotic heart disease of native coronary artery without angina pectoris; E78.5 Hyperlipidemia, unspecified; D63.1 Anemia in chronic kidney disease; R60.1 Generalized edema; D50.9 Iron deficiency anemia, unspecified; I49.5 Sick sinus syndrome; E83.51 Hypocalcemia; D69.6 Thrombocytopenia, unspecified; R31.0 Gross hematuria; E83.42 Hypomagnesemia; Z95.0 Presence of cardiac pacemaker; I25.2 Old myocardial infarction; Z79.82 Long term (current) use of aspirin; Z79.899 Other long term (current) drug therapy; Y83.8 Other surgical procedures as the cause of abnormal reaction of the patient, or of later complication, without mention of misadventure at the time of the procedure

== ENCOUNTER → 2022-12-14 | Outpatient (CLI) | payer MEDICARE ==
[~2022-12-14] MED LIST changes: +FLOM0.4C39 PO; +GNP625TA PO; -LIDOCAINE 2% 100MG/5ML SDV (FOR ANES.) As Ordered ONE; +MAGN400T2 PO; +MEGASTROL PO; +METO50TA7 PO; -ONDANSETRON 4MG 2ML VIAL As Ordered ONE; +POTA-136 PO; -ROCURONIUM BROMIDE 50MG/5ML VIAL As Ordered ONE; -SUGAMMADEX SODIUM 500 MG/5 ML VIAL (BRIDION) As Ordered ONE; +TORS20TA2 PO; -propofoL 200 MG/20 ML VIAL As Ordered ONE
== END ==
LOC: M PLAIMG 09:20
PROVIDERS: ATTEND Nurse Practitioner
DX: C18.9 Malignant neoplasm of colon, unspecified (principal)

== ENCOUNTER 2023-02-24 07:46 | Emergency (ER) | payer MEDICARE ==
[~2023-02-24] VITALS: Ht 167.6 cm; Wt 62.5 kg
[~2023-02-24 07:46] MED LIST changes: +FERR325T3 PO; +POTA10TA67 PO; +VITA200031 PO
[2023-02-24] MEDS ORDERED: MIRA3350 PO (08:06)
[2023-02-24] MEDS ORDERED: MM S100C PO (08:06)
[2023-02-24] MEDS ORDERED: NS 1,000 ML IV SCH (08:55)
[2023-02-24 09:18] LABS: BASO # 0.1 10^3/uL (0.0-0.2); BASO % 0.4 % (0.0-1.0); EOS # 0.1 10^3/uL (0.0-0.5); EOS % 1.2 % (0.0-3.0); HEMATOCRIT 31.4 % (42.0-52.0); HEMOGLOBIN 10.1 g/dl (13.5-17.5); LYMPH # 0.9 10^3/uL (1.5-5.0); LYMPH % 7.5 % (24.0-44.0); MEAN CORPUSCULAR HEMOGLOBIN 32.7 pg (27.0-33.0); MEAN CORPUSCULAR HGB CONC 32.2 g/dl (32.0-36.5); MEAN CORPUSCULAR VOLUME 101.6 fl (80.0-96.0); MONO # 0.9 10^3/uL (0.0-0.8); MONO % 7.6 % (2.0-8.0); NEUTROPHILS # 9.4 10^3/uL (1.5-8.5); NEUTROPHILS % 82.9 % (36.0-66.0); PLATELET COUNT, AUTOMATED 295 10^3/uL (150-450); RED BLOOD COUNT 3.09 10^6/uL (4.30-6.10); WHITE BLOOD COUNT 11.4 10^3/uL (4.0-10.0)
[2023-02-24 09:52] LABS: ALBUMIN 2.6 G/DL (3.2-5.2); BILIRUBIN,DIRECT 0.3 MG/DL (<0.4); BILIRUBIN,TOTAL 0.6 MG/DL (0.3-1.2); CALCIUM LEVEL 10.4 MG/DL (8.3-10.6); CREATININE FOR GFR 2.09 MG/DL (0.70-1.30); GLOMERULAR FILTRATION RATE 32.6 (>35); POTASSIUM SERUM 5.1 MMOL/L (3.5-5.1); TOTAL PROTEIN 6.3 G/DL (5.7-8.2)
[2023-02-24] MEDS ORDERED: HYDR-3713 PO (11:21)
[2023-02-24 11:30] VITALS: BP 148/66; TEMP 96.6; O2SAT 100
== END 2023-02-24 11:43 | disposition home or self-care (01) ==
LOC: M ED 07:46
DX: C18.9 Malignant neoplasm of colon, unspecified (principal); I12.9 Hypertensive chronic kidney disease with stage 1 through stage 4 chronic kidney disease, or unspecified chronic kidney disease; I48.91 Unspecified atrial fibrillation; I50.20 Unspecified systolic (congestive) heart failure; N18.5 Chronic kidney disease, stage 5; I25.10 Atherosclerotic heart disease of native coronary artery without angina pectoris; Z95.0 Presence of cardiac pacemaker; Z87.891 Personal history of nicotine dependence; Z79.899 Other long term (current) drug therapy; Z79.82 Long term (current) use of aspirin

== ENCOUNTER → 2023-03-29 | Outpatient (CLI) | payer MEDICARE ==
[~2023-03-29] MED LIST changes: +HYDR-161 PO; +HYDR-3713 PO; -HYDR10TAB PO; +MEGE40SU5 PO; +MIRA3350 PO; +MM S100C PO
== END ==
LOC: M ONCM 10:28
PROVIDERS: ATTEND Dietitian, Registered
DX: C18.9 Malignant neoplasm of colon, unspecified (principal); D49.7 Neoplasm of unspecified behavior of endocrine glands and other parts of nervous system; Z71.3 Dietary counseling and surveillance; Z68.22 Body mass index [BMI] 22.0-22.9, adult

== ENCOUNTER → 2023-04-08 | Outpatient (CLI) | payer MEDICARE ==
[~2023-04-08] MED LIST changes: +ACET1TAB55 PO; +LIDOCAINE 1% MDV 20ML VIAL As Ordered ONE; +MEGE20TA3 PO
[2023-04-08 08:15] VITALS: TEMP 98
[2023-04-08 09:14] LABS: BASO # 0.1 10^3/uL (0.0-0.2); BASO % 0.5 % (0.0-1.0); EOS # 0.1 10^3/uL (0.0-0.5); EOS % 0.7 % (0.0-3.0); HEMATOCRIT 29.6 % (42.0-52.0); HEMOGLOBIN 9.3 g/dl (13.5-17.5); LYMPH # 0.9 10^3/uL (1.5-5.0); LYMPH % 9.6 % (24.0-44.0); MEAN CORPUSCULAR HEMOGLOBIN 31.6 pg (27.0-33.0); MEAN CORPUSCULAR HGB CONC 31.4 g/dl (32.0-36.5); MEAN CORPUSCULAR VOLUME 100.7 fl (80.0-96.0); MONO # 0.9 10^3/uL (0.0-0.8); MONO % 9.4 % (2.0-8.0); NEUTROPHILS # 7.4 10^3/uL (1.5-8.5); NEUTROPHILS % 79.5 % (36.0-66.0); PLATELET COUNT, AUTOMATED 402 10^3/uL (150-450); RED BLOOD COUNT 2.94 10^6/uL (4.30-6.10); WHITE BLOOD COUNT 9.4 10^3/uL (4.0-10.0)
[2023-04-08 09:16] VITALS: BP 140/65; O2SAT 100
[2023-04-08 09:40] LABS: PERCENT SATURATION 13.9 % (19.7-50.0)
[2023-04-08 09:41] LABS: ALBUMIN 2.3 G/DL (3.2-5.2); BILIRUBIN,TOTAL 0.3 MG/DL (0.3-1.2); CALCIUM LEVEL 8.9 MG/DL (8.3-10.6); CREATININE FOR GFR 1.58 MG/DL (0.70-1.30); POTASSIUM SERUM 4.5 MMOL/L (3.5-5.1); TOTAL PROTEIN 6.8 G/DL (5.7-8.2)
[2023-04-08 09:43] LABS: FERRITIN 153.3 NG/ML (10.5-307.3)
== END ==
LOC: M IRPRO 07:38
PROVIDERS: ATTEND Internal Medicine Medical Oncology
DX: R22.2 Localized swelling, mass and lump, trunk (principal); C18.9 Malignant neoplasm of colon, unspecified

== ENCOUNTER → 2023-04-12 | Outpatient (CLI) | payer MEDICARE ==
[~2023-04-12] VITALS: Ht 167.6 cm; Wt 63.6 kg
[~2023-04-12] MED LIST changes: +LIDOCAINE W/EPINEPHRINE 1% 20ML VIAL As Ordered ONE; +MIDAZOLAM INJ 2MG/2ML VIAL As Ordered ONE; +ceFAZolin 2 GM/D5W 50 ML IV BAG As Ordered ONE; +ceFAZolin SOD 2 GM in IV 1 EA IV ONE; +fentaNYL 100 MCG/2 ML INJECTION As Ordered ONE
[2023-04-12 12:30] VITALS: TEMP 97.3
[2023-04-12 14:45] VITALS: BP 135/66; O2SAT 92
== END ==
LOC: M IRPRO 12:13
PROVIDERS: ATTEND Internal Medicine Medical Oncology
DX: R22.2 Localized swelling, mass and lump, trunk (principal); C18.9 Malignant neoplasm of colon, unspecified
CPT/HCPCS: 36561; 99152; 99153; C1769; J0690; J2250; J3010

== ENCOUNTER → 2023-04-14 | Outpatient (CLI) | payer MEDICARE ==
[~2023-04-14] MED LIST changes: -ASPI-161 PO; +ASPI-615 PO; +DEXA2TA PO; +HYDR-4517 PO; -LIDOCAINE 1% MDV 20ML VIAL As Ordered ONE; -LIDOCAINE W/EPINEPHRINE 1% 20ML VIAL As Ordered ONE; +MAGN400C2 PO; -MEGE40SU5 PO; +MEGE40SU6 PO; -MIDAZOLAM INJ 2MG/2ML VIAL As Ordered ONE; +OXYC-673 PO; +XTAM9CAP PO; -ceFAZolin 2 GM/D5W 50 ML IV BAG As Ordered ONE; -ceFAZolin SOD 2 GM in IV 1 EA IV ONE; -fentaNYL 100 MCG/2 ML INJECTION As Ordered ONE
== END ==
LOC: M ONCR 14:00
PROVIDERS: ATTEND General Practice
DX: C18.9 Malignant neoplasm of colon, unspecified (principal); R19.03 Right lower quadrant abdominal swelling, mass and lump; Z71.2 Person consulting for explanation of examination or test findings; Z79.52 Long term (current) use of systemic steroids; Z79.82 Long term (current) use of aspirin; Z79.891 Long term (current) use of opiate analgesic; Z79.899 Other long term (current) drug therapy; Z80.1 Family history of malignant neoplasm of trachea, bronchus and lung; Z87.891 Personal history of nicotine dependence; Z95.0 Presence of cardiac pacemaker

== ENCOUNTER → 2023-04-14 | Outpatient (CLI) | payer MEDICARE ==
[~2023-04-14] VITALS: Ht 167.6 cm; Wt 61.5 kg
[2023-04-14 10:26] VITALS: BP 90/60; O2SAT 100
== END ==
LOC: M PAL 09:54
PROVIDERS: ATTEND Nurse Practitioner Adult Health
DX: G89.3 Neoplasm related pain (acute) (chronic) (principal); R10.31 Right lower quadrant pain; C18.9 Malignant neoplasm of colon, unspecified; R63.0 Anorexia; K59.00 Constipation, unspecified; R53.81 Other malaise; Z51.5 Encounter for palliative care; Z66 Do not resuscitate; Z79.82 Long term (current) use of aspirin; Z79.891 Long term (current) use of opiate analgesic; Z79.52 Long term (current) use of systemic steroids; Z80.0 Family history of malignant neoplasm of digestive organs; Z79.899 Other long term (current) drug therapy; Z87.891 Personal history of nicotine dependence; Z90.49 Acquired absence of other specified parts of digestive tract